=== PATIENT | male | born 1970 | race Caucasian/White ===

== ENCOUNTER → 2018-03-08 15:42 | Outpatient (CLI) | payer OTHER, SELFPAY | PROVIDERS: Family Provider Family Medicine; PCP Family Medicine | DX: Z23 Encounter for immunization (principal) | CPT/HCPCS: 90471; 90686 ==

== ENCOUNTER → 2018-06-27 08:53 | Outpatient (CLI) | payer OTHER, SELFPAY ==
[2018-06-27 09:50] LABS: Add Manual Diff / Slide Review NO; Basophils Absolute Auto 0 /uL (0-100); Basophils Percent Auto 0.8 % (0-2); Eosinophils Absolute Auto 100 /uL (0-450); Eosinophils Percent Auto 2.3 % (2-4); Hematocrit 50.3 % (41-53); Hemoglobin 17.2 g/dL (13.5-17.5); Lymphocytes Absolute Auto 1100 /uL (1100-4500); Lymphocytes Percent Auto 17.4 % (25-40); Mean Corpuscular HGB Conc 34.2 % (30-36); Mean Corpuscular Volume 90.7 fL (80-100); Monocytes Absolute Auto 600 /uL (0-900); Monocytes Percent Auto 9.2 % (3-14); Neutrophils Absolute Auto 4400 /uL (1500-7000); Neutrophils Percent Auto 70.3 % (50-75); Platelet Count 232 X10^3/uL (150-400); Red Blood Cell Count 5.55 X10^6/uL (4.5-5.9); Red Cell Distribution Width 14.1 % (11.6-14.8); White Blood Cell Count 6.3 X10^3/uL (4.5-11.0)
[2018-06-27 10:00] LABS: Alanine Aminotransferase 46 IU/L (21-72); Albumin 5.1 g/dL (3.5-5.0); Albumin Globulin Ratio 1.6 (1.0-2.8); Alkaline Phosphatase 66 U/L (38-126); Aspartate Aminotransferase 40 IU/L (17-59); BUN Creatinine Ratio 16.7 (6-22); Bilirubin Total 0.8 mg/dL (0.2-1.3); Blood Urea Nitrogen 15 mg/dL (9-20); Calcium 9.9 mg/dL (8.4-10.2); Carbon Dioxide 26 mmol/L (22-32); Chloride 99 mmol/L (98-107); Cholesterol 221 mg/dL (140-199); Estimated Glomerular Filt Rate > 60.0 mL/min (>60); Globulin 3.2 g/dL (1.7-4.1); Glucose 98 mg/dL (70-100); HDL Cholesterol 46 mg/dL (40-60); HEMOLYSIS < 15 (0-50); LDL Cholesterol Calculated 108 mg/dL (<100); Potassium 3.6 mmol/L (3.4-5.1); Sodium 138 mmol/L (137-145); Total Protein 8.3 g/dL (6.3-8.2); Triglycerides 334 mg/dL (35-150)
[2018-06-27 10:29] LABS: Prostate Specific Antigen Scrn 0.898 ng/mL (0.1-4.0)
[2018-06-27 10:32] LABS: Vitamin D 25 Hydroxy (D3) 60.1 ng/mL (30.0-100.0)
[2018-06-27 10:44] LABS: Thyroid Stimulating Hormone 1.58 uIU/mL (0.47-4.68)
== END ==
PROVIDERS: PCP Family Medicine; Visit Provider Family Medicine
DX: E78.5 Hyperlipidemia, unspecified (principal); E55.9 Vitamin D deficiency, unspecified; I10 Essential (primary) hypertension; Z00.00 Encounter for general adult medical examination without abnormal findings
CPT/HCPCS: 36415; 80053; 80061; 82306; 84443; 85025; G0103

== ENCOUNTER → 2018-08-07 15:20 | Outpatient (REF) | payer OTHER, SELFPAY ==
[2018-08-07 15:50] LABS: Influenza A and B by PCR Rapid Negative (Negative)
== END ==
LOC: LAB 15:20
PROVIDERS: PCP Family Medicine; Visit Provider Internal Medicine
DX: R50.9 Fever, unspecified (principal); R05 Cough
CPT/HCPCS: 87400

== ENCOUNTER 2018-09-28 06:05 | Inpatient (IN) | payer OTHER, SELFPAY ==
[2018-09-18 13:54] VITALS: BMI 25.7
[2018-09-28] VITALS (21 sets, daily range): BP systolic 113–148; BP diastolic 65–109; PULSE 89–115; RESP 3–18; TEMP 35.6–36.6; O2SAT 91–96; BMI 25.2
--- NOTE | 2018-09-28 | DI.RAD.S_ITS ---
PROCEDURE: XR LUMBAR SPINE 2-3V INDICATIONS: L5-S1 TLIF TECHNIQUE: 2 views of the lumbar spine were acquired. COMPARISON: [facility], , L-SPINE 2-3 VIEWS, 08/20/2016, 15:33. FINDINGS: Bones: The digital imaging demonstrates normal alignment established after placement of transverse pedicle screws and vertical fixation rods crossing L5-S1 with an interbody disc cage prosthesis centrally positioned. Soft tissues: Overlying bowel gas pattern is normal. No suspicious soft tissue calcifications. IMPRESSION: Normal alignment established after L5-S1 fusion with interbody disc prosthesis placement also. Dictated by: Adrian Hair M.D. on 09/28/2018 at 12:07 Approved by: Adrian Hair M.D. on 09/28/2018 at 12:09
[2018-09-28] MEDS: LACTATED RINGERS 1,000 ML 42 ML IV ×2 (07:43→11:10)
[2018-09-28] MEDS: CEFAZOLIN 2 GM/100 ML FROZ.PIGGY IV ×3 (07:50→23:50)
--- NOTE | 2018-09-28 08:18 | SUR.OPER ---
Prone on spine table, head in foam head support, padded chest and pelvic supports, gel pad at knees, lower legs supported by pillows; nipples, genitalia and toes free of pressure, arms secured on foam padded arm boards at <90 degrees abduction. Tape over blanket at calves secured to table.
[2018-09-28] MEDS: BUPIVACAINE 0.25% W/ EPI 30 ML VIAL INJ (08:32)
[2018-09-28] MEDS: BUPIVACAINE LIPOSOME 266 MG/20 ML VIAL INJ (08:35)
--- NOTE | 2018-09-28 10:33 | P.OP_ITS ---
Operative Date/Time/Diagnoses Date of procedure: 09/28/18 Time of procedure: 08:09 Pre-op diagnosis: 1. L5-S1 post laminectomy syndrome 2. L4-5, L5-S1 spinal stenosis Post-op diagnosis: same Procedure & Clinicians Procedure: 1. L5-S1 Postero-lateral and posterior interbody fusion 2. L5-S1 interbody cage placement. 3. L5-S1 decompressive laminectomy with bilateral facetecomies 4. L5-S1 Posterior non-segmental instrumentation 5. L4-5 right hemilaminectomy 6. [place] of bone marrow from iliac crest 7. Utilization of microsurgical technique and operating microscope Same procedure as scheduled: Yes Indications: Patient has been having chronic back pain and worsening lumbar radiculopathy. Patient failed multiple conservative management with worsening pain weakness and numbness in her lower extremity. Patient has been having difficulty performing activity of daily living. After discussing risks benefits of treatment options, patient elected proceed with surgery. Surgeon: Jose Raul Kang Promotional Marketing Agent: Lou Gibbs Click Yes if Unassisted: No Anesthesia Type: General Operative Notes Closure Type: primary Specimen(s): none sent Prosthetic devices, grafts, tissues, transplants, or devices: Globus Creo MIS pedicle screws, Rise cage Estimated Blood Loss (mL): 50 Blood products transfused: none Procedure in detail: Patient was seen in the preoperative area. Risks and benefits of the surgery was discussed with the patient. Informed consent was obtained from the patient and placed in the chart. Surgical site was marked. Patient was taken to the operative room. General anesthesia was administered. Prophylactic antibiotic was given to the patient less than 30 min before the incision was made. Patient was placed into a prone position on the Joshua table. Patient's back was then prepped and draped in the sterile fashion. Time- out was performed at this time. Using AP and lateral C-arm imaging the interval between L4-5, L5-S1 was identified and marked on patient's back. A 2 inch incision 2 in from midline was made on the right side first. The fascia was incised in line with skin incision. Globus MARS retractors was placed inside the incision and docked onto the L5 lamina. Using microsurgical technique and operating microscope, a L5 laminectomy and L5-S1 facetectomy was performed using a Kerrison rongeur. Patient was found have severe bilateral neural foramen stenosis which was fully decompressed when bilateral facetectomy was performed. More than 75% of bilateral facets were resected rendered L5-S1 grossly unstable requiring a fusion procedure. The disc space at L5-S1 was identified. And a total dis kectomy was performed at L5-S1 level. The endplates were decorticated using a rasp and shaver. The total diskectomy and decortication was performed at L5-S1 level in order to to accomplish a L5-S1 fusion. The local bone from the laminectomy and facetectomy was saved for local bone grafting. After the total diskectomy and decortication was completed, Bio4 bone graft material was combined with local bone that was harvested earlier. At this time, a separate skin is incision was made over the iliac crest. A Jamshidi needle was inserted into the iliac crest through a separate skin incision. 5 cc of bone marrow aspiration was obtained through the separate skin incision using a Jamshidi needle from the iliac crest. The bone marrow aspiration was combined with local bone and the Bio4 bone grafting material. The bone grafting material was placed into the L5-S1 interbody space along with a expandable cage. The cage was expanded to its maximum height using the torque limiting screwdriver. At this time the MARS retractor was redirected over the L4 lamina. Using microsurgical technique and operating microscope, a L4 heminectomy was performed using the Kerrison rongeur. The ligamentum flavum was also resected at the side of the hemilaminectomy for further decompression of the epidural space. At this time a mirror image incision was made on the left side. The fascia was incised in line with the skin incision. Globus MARS retractor was inserted and docked onto the L5-S1 posterolateral gutter. Using the power drill, posterior- lateral decortication was performed at L5-S1 level until bleeding cortical bone was identified. The remaining bone grafting material was placed into the L5-S1 posterior lateral gutter he order to accomplish posterolateral fusion at the L5- S1 level. Using the double C-arm technique, pedicle screws were placed into the L5 and S1 pedicles bilaterally. This was done by placing the Jamshidi needle into the pedicles, then placing the guidewires over the Jamshidi needle, and finally placing the cannulated screws over the guidewires bilaterally. After the pedicle screws were placed, 2 titanium rods was locked into the heads of the pedicle screws using locking caps and torque limiting screwdriver. After all the hardware was placed, and confirmed with AP and lateral C-arm imaging, the wound was then irrigated with sterile normal saline and packed with Ray-Jovanni gauze for 3 min to accomplish hemostasis. After the gauze was removed the deep fascia was closed with #1 Vicryl suture. The subcutaneous layer was closed with 2-0 Vicryl. The skin was closed with skin layne. Patient tolerated the procedure well. There were no complications. Complications: none Condition: stable Disposition: Acute Care Plan for aftercare: Admit to inpatient hospital
[2018-09-28] MEDS: hydrOXYzine 50 MG/ML INJ 25 MG IM (10:41)
[2018-09-28] MEDS: HYDROMORPHONE 2 MG INJ 1 MG IV (10:44)
--- NOTE | 2018-09-28 10:44 | PM.PREOP ---
Pre-operative Note Interval Note History & Physical reviewed/Exam performed by Physician: Yes Changes to H&P: No
[2018-09-28] MEDS: OXYCODONE IR 5 MG TABLET PO ×2 (11:14→11:48)
[2018-09-28] MEDS: SODIUM CHLORIDE 0.9% 1,000 ML 100 ML IV ×2 (12:44→23:46)
[2018-09-28] MEDS: HYDROMORPHONE 1 MG INJ 0.5 MG IV ×2 (12:45→15:31)
--- NOTE | 2018-09-28 13:28 | PC.NURSE ---
admission done. pt states very uncomfortable restless. H/O sleep apnea but doesn't use Cpap. O2 at 2L/NC. desats to 88% occasionally with sleeping. Dilaudid 0.5mg IV given.
[2018-09-28] MEDS: LISINOPRIL 20 MG TABLET PO (14:39)
[2018-09-28] MEDS: AMLODIPINE 5 MG TABLET PO (14:40)
[2018-09-28] MEDS: OXYCODONE/ACETAMINOPHEN 5/325 TABLET 2 TAB PO ×3 (14:42→23:23)
[2018-09-28] MEDS: HYDROMORPHONE 2 MG INJ 0.5 MG IV (14:56)
--- NOTE | 2018-09-28 15:21 | PT.IIE ---
Current Diagnoses Other spondylosis with radiculopathy, lumbar region (09/28/18) Spinal stenosis, lumbar region without neurogenic claudication (09/28/18) Other specified postprocedural states (09/28/18) Surgery Performed Operation Date: 09/28/18 07:45 Actual Procedures p L4-5 Hemilaminectomy, L5-S1 TLIF w/Posterior Instru. - Jose Raul Kang MD Surgical History (Last Updated 09/18/18 @ 14:12 by Emmy Caban RN) History of kidney surgery (Acute) Hx of microdiscectomy (Acute 08/20/16) Hx of sinus surgery (Acute) S/P cervical spinal fusion (Acute ~2011) Medical History (Last Updated 09/18/18 @ 14:12 by Emmy Caban RN) Anxiety (Acute) Depression (Acute) HLD (hyperlipidemia) (Acute) HTN (hypertension) (Acute) Kidney stones (Acute) Low back pain (Acute) Sleep apnea (Acute) Physical Therapy Inpatient Evaluation/Re-Eval M1 PT/OT-IP Prior Functional Status Start: 09/28/18 16:27 Freq: NEEDED Status: Active Protocol: Document 09/28/18 15:21 AB (Rec: 09/28/18 16:49 AB [id number]) Medical Review Prior Functional Status Medical History Reviewed Yes Communication able to make needs known Mobility and Gait stated that he is independent with all mobilities and ambulation wtihout AD Social History Household Members spouse children Living Arrangements House Number of Floors (Floors) Two Floors Number of Stairs To Enter/Railing? 1 platform step to getinto the garage 2 steps from the garage to enter the house without rails 12 steps with R rail ascending to 2nd floor bedroom Home Environment Standard Height Toilet Tub/Shower Home Equipment Front Wheel Walker Employment Status [employer] Employed Additional Social History Comment pt works as a [employer] M2 PT-IP Current Condition Start: 09/28/18 16:27 Freq: NEEDED Status: Active Protocol: Document 09/28/18 15:21 AB (Rec: 09/28/18 16:49 AB [id number]) Physical Therapy Current Condition Current Condition Evaluation Date 09/28/18 Treatment Diagnosis s/p L5S1 fusion;lami; difficulty in walking Onset Date 09/18/18 Precautions Lumbar Precautions Log Roll No Twisting Limit Bending Lifting Restriction of 10 lbs Gait Belt above Incisional Area M3 PT-IP Subjective Start: 09/28/18 16:27 Freq: NEEDED Status: Active Protocol: Document 09/28/18 15:21 AB (Rec: 09/28/18 16:49 AB [id number]) Subjective Physical Therapy Visit Type Type Initial Evaluation Visit Start Time 15:21 Visit Stop Time 16:00 Total Visit Minutes 39 Number of MANIFEST CLERK Visits 0 Physical Therapy Visit Comments Patient Comments pt agreeable to do PT Therapy Pain Assessment Pain When Pain Assessed At Rest Pain Present Pain Present Pain Reported Location Lower Back Intensity 9 Scale Used Numeric (1 - 10) Pain Management Techniques Apply Cold Re-positioning Timing of Activity with Medications M4 PT-IP Mobility and Gait Start: 09/28/18 16:27 Freq: NEEDED Status: Active Protocol: Document 09/28/18 15:21 AB (Rec: 09/28/18 16:49 AB [id number]) PT-Bed Mobility Assessment Rolling Type of Rolling Log Rolling Level of Assist Standby Assistance Supine to Sit Supine to Sit Standby Assistance PT-Transfer Assessment Sit to and From Stand Sit to and from Stand Minimal Assistance 1 Person Assistance Use of Upper Extremities Equipment Transfer Assistive Device Gait Belt Front Wheeled Walker Orthotic/Prosthetic Devices or Brace: No Transfers Transfer Destination Chair Transfer Technique pt ambulated using FWW Transfer Ability Level of Assist Contact Guard Assistance Minimal Assistance Gait Assessment Gait Gait Assistance Required: Contact Guard Assist Minimum Assistance Distance (Feet) 10 Able to Maintain Weight Bearing Status Yes During Gait Assistive Devices Assistive Device Gait Belt Front Wheeled Walker Orthotic/Prosthetic Devices or Brace: No Gait Deviations General Gait Pattern Antalgic Factors Limiting Gait Function Factors Limiting Gait Function Decreased Activity Tolerance Decreased Strength Limited Range of Motion Pain Poor Balance Poor Safety Awareness PT-Balance Assessment Sitting Balance and Reactions Static Sitting Balance Ability Good Dynamic Sitting Balance Ability Good Standing Balance and Reactions Static Standing Balance Ability Fair Dynamic Standing Balance Ability Fair Device Used FWW M5 PT-IP Objective Assessments Start: 09/28/18 16:27 Freq: NEEDED Status: Active Protocol: Document 09/28/18 15:21 AB (Rec: 09/28/18 16:49 AB [id number]) Orientation Orientation/Cognition Level of Alertness Alert Orientation Name Place Situation Safety Awareness Decreased Safety Awareness Gross Range of Motion Lower Extremity ROM Assessment Within Functional Limits Strength Lower Extremity Strength Assessment Left Impaired Knee 3+/5 Sensation Assessment Sensation Gross Sensation WNL Muscle Tone Muscle Tone WNL Yes M6 PT-IP Treatment Start: 09/28/18 16:27 Freq: NEEDED Status: Active Protocol: Document 09/28/18 15:21 AB (Rec: 09/28/18 16:49 AB [id number]) Physical Therapy Treatment Education Education Provided Precautions Weight Bearing Status Post-Op Packet Safety M7 PT-IP Assessment and Plan Start: 09/28/18 16:27 Freq: NEEDED Status: Active Protocol: Document 09/28/18 15:21 AB (Rec: 09/28/18 16:49 AB [id number]) PT Summary Assessment and Plan Potential Rehabilitation Potential Good Status of Condition at Evaluation Stable Summary Impairments Pain ROM Strength Balance Coordination Sensation Tone Cognition Bed Mobility Transfers Gait Activity Tolerance Assessment Summary pt requiring CGA to min A with mobility and will likely improve during hospital stay. pt plans to go home and spouse/children will be able to assist pt but will not be there 29/11. Goals Bed Mobility Goal Independent Transfer Goal Independent Front Wheeled Walker Gait Goal Independent Front Wheel Walker Gait Distance 200 Other Goals up/down platform step using FWW SBA up/down 2 steps without rails SBA up/down 12 steps R rail ascending SBA Days to Meet Goals 5 Frequency of Treatment Frequency Of Treatment Twice a Day Treatment Plan Physical Therapy Treatment Plan Bed Mobility Training Transfer Training Gait Training Therapeutic Exercise Balance Retraining Post Op Education Discharge Planning Hot or Cold Pack Neuromuscular Re-ed Coordination Retraining Manual Therapy Other Recommendations and Next Treatment ambulation, stair climbing Focus training, caregiver training when appropriate Recommendations To Nursing Amount of Assist Needed 1 Person Assist Discharge Recommendations PT Discharge Recommendations Home with Assistance
[2018-09-28] MEDS: hydrOXYzine pamoate 25 MG CAPSULE PO ×2 (15:31→22:01)
--- NOTE | 2018-09-28 15:41 | CM.DANOTE ---
Discharge Planning/Care Management DCP: assessment: case received this morning, EMR reviewed and noted that pt was still in surgery. Available documentation reveals that pt is a 47 year old male who admitted early this morning for a planned spinal surgery. Surgeon: Dr. Kang. Payer: [employer] [facility] PCP: Dr. Ranjan Boyd Pt is employed by [employer]. A check in now shows that pt did arrive to room 204 mid afternoon from PACU. PT and OT are ordered but likely will see him for the first time tomorrow. P: discuss case in Team Rounds tomorrow, confer with OT and PT and then meet with pt to continue the DCP assessment process. Pt identified his d/c plan during the pre-op process as home. CM Discharge Assessment Start: 09/28/18 15:40 Freq: Status: Active Protocol: Document 09/28/18 15:40 ITV (Rec: 09/28/18 15:41 ITV [id number]) Discharge Planning Assessment Advance Directives? No: Declines further information Advance Directives on File No History Provided By Medical Record Prior Living Arrangements House Household Members spouse children Review Status In Process Pre-Anesthesia Assessment Start: 09/18/18 13:54 Freq: Status: Active Protocol: Document 09/18/18 13:54 CAB (Rec: 09/18/18 14:20 CAB [id number]) Pre-Anesthesia Assessment PAC Comment C02 35 on pre-op labs 08/28/18 Patient Information Reviewed Via Phone Assessment Assessment Completed With Patient Diagnostic Results BMP/CMP CBC EKG Comment Outside labs/EKG scanned to record Primary Care Provider Walt Boyd Medical Clearance Received Yes Seen Specialist in Last 12 Months Yes Specialist Seen Orthopedist Comment PCP pre-op 08/23/18 w/clearance 08/28/18 scanned to record Primary Language Thai Rib Matcher And Fitter Required No Height 180.34 cm Weight 83.915 kg Body Mass Index (BMI) 25.7 Hearing Ability Normal Visual Impairment No Limitations Visual Assist None Dentition Type Teeth, Natural Present Teeth, Missing Barriers to Learning None Hx Anesthesia Reactions No: C02 35 on pre-op labs 08/28 Hx Family Anesthesia Reaction No Hx Malignant Hyperthermia No Hx Blood Transfusions No Anesthesia Review Requested No Mold Engraver No alcohol intake current alcohol intake frequency a few times a week Smoking Status Former smoker Tobacco type cigarettes how long ago did patient quit smoking Quit 15 years ago, chews nicorette gum Substance Use Type does not use Pain Present Pain Reported Musculoskeletal Symptoms Back Pain Difficulty Walking Joint Pain Neck Pain History of Falling (Recent or History of No ) Patient is completely paralyzed or No completely immobile Mental Status Oriented to own ability Is patient on oxygen? No Does patient have MALONE/SOB No Hx Sleep Apnea Yes: told on the cusp does not use CPAP Currently Taking a Beta Shauna No Can You Climb a Flight of Stairs Without Yes SOB Hx Chest Pain No Hx SOB No Hx Syncope or Dizziness No Anti-Coagulant Therapy No Has a Machine Shop Inspector No Cardiac Testing No Hx Pacemaker/ICD No Pacemaker Rep Required? No Cardiac Clearance Received Not Applicable Diet Type At Home Regular dysphagia No Urinary Catheter Present No Hx Urinary Self Catheterization No Diabetes No Hx Drug Resistant Organism No Presence of External or Internal Medical Yes: Clip on the left kidney Devices artery Have you traveled outside the [facility] in the last 30 days? Marital Status Lives With spouse children Prior Living Arrangements House Number of Floors (Floors) Two Floors Support System Spouse Does the Patient Have Assistance After Yes Surgery Patient Discharge Plan Description Return Home Comment Pt not advised on length of stay per surgeon's office Feels Safe in Current Environment Yes Been Physically Hurt or Threatened By a No Person in Current Environment Do you have thoughts of harming yourself None or others? Are you currently considering suicide? No Do you have a plan to hurt yourself or No Plan others? Do You Have Any Spiritual Beliefs That No May Affect Your HC Choices? Do You Have Any Cultural Practices That No May Affect Your HC Choices? Who Can We Speak to About Patient's Care Family, friends Identifying Code for Release of Patient Declines to issue Information Health Care Proxy/Next of Kin Marta () Health Care Proxy Emergency Contact Name Marta () Emergency Contact Advance Directives? No: Declines further information PAC Instructions Durable medical equipment Medications to take/avoid Nasal antibiotic No ETOH/petroleum product on skin DOS NPO Pre-surgical wash Sturdy shoes/comfortable clothes Do not bring valuables and remove jewelry
[2018-09-28] MEDS: HYDROMORPHONE 0.5 MG INJ IV (18:10)
[2018-09-28] MEDS: LOVASTATIN 20 MG TABLET 60 MG PO (22:01)
[2018-09-28] MEDS: SENNOSIDES 8.6 MG TABLET 17.2 MG PO (22:02)
[2018-09-28] MEDS: DOCUSATE 100 MG CAPSULE PO (22:02)
[2018-09-29] MEDS: HYDROMORPHONE 0.5 MG INJ IV (02:39)
[2018-09-29] MEDS: hydrOXYzine pamoate 25 MG CAPSULE PO (02:39)
[2018-09-29] MEDS: OXYCODONE/ACETAMINOPHEN 5/325 TABLET 2 TAB PO ×2 (05:58→10:52)
[2018-09-29 05:59] VITALS: BP 106/78; PULSE 93; RESP 16; TEMP 36.5; O2SAT 95
[2018-09-29 06:42] LABS: Hemoglobin 14.1 g/dL (13.5-17.5)
[2018-09-29] MEDS: DEXAMETHASONE 10 MG/ML VIAL IV (08:47)
[2018-09-29] MEDS: GABAPENTIN 300 MG CAPSULE PO ×2 (08:48→10:50)
[2018-09-29] MEDS: AMLODIPINE 5 MG TABLET PO (08:48)
[2018-09-29] MEDS: CHOLECALCIFEROL (VITAMIN D3) 5,000 UNIT TABLET 5000 UNIT PO (08:49)
[2018-09-29] MEDS: SERTRALINE 50 MG TABLET 150 MG PO (08:49)
[2018-09-29] MEDS: LISINOPRIL 20 MG TABLET PO (08:49)
[2018-09-29] MEDS: DOCUSATE 100 MG CAPSULE PO (08:49)
[2018-09-29] MEDS: hydroCHLOROthiazide 25 MG TABLET PO (08:49)
[2018-09-29] MEDS: DULOXETINE 30 MG CAPSULE PO (08:49)
--- NOTE | 2018-09-29 09:54 | PM.PNPO.1 ---
Subjective Date Patient Seen: 09/29/18 Time Patient Seen: 09:54 Interval history: POD #[address] Kang. Patient had pain control issues last night. States it was sharp shooting pains down his leg. Patient was not on pain meds prior to surgery. He has taking gabapentin in the past and did well on it. He has not been up PT. Exam Vital Signs (past 8 hours): - 09/29/18 05:59 Temperature 97.7 F Pulse Rate 93 H Respiratory Rate 16 Blood Pressure 106/78 Pulse Oximetry 95 Fraction of Inspired Oxygen 28 Oxygen Delivery Method Nasal Cannula Oxygen Flow Rate 2 Narrative Exam Narrative: Patient walking about room in pain. Dressing on back has shadow drainage on right side. Dressing removed there is no active drainage, hematoma, or erythema. Pulses are symmetrical. Calves are soft, compressible, nontender bilaterally. Objective Labs Result Diagrams: 09/29/18 05:45 Labs: Laboratory Results - last 24 hr 09/29/18 05:45 Hgb 14.1 Hct 42.0 Assessment & Plan Post-op (1) S/P lumbar fusion: (2) Lumbar radiculopathy: Postoperative Procedures Operation Date: 09/28/18 07:45 Actual Procedures Side Surgeon p L4-5 Hemilaminectomy, L5-S1 TLIF w/Posterior Instru. Jose Raul aKng MD patient will mobilize with physical therapy today. No excessive bending, lifting, or twisting. Dressing changed cover site dressing. Started patient on gabapentin 300 mg t.i.d.. Started on Decadron 10 mg now, 4 mg every 6 hours. Continue current pain control. Patient may discharge home tonight if he is ambulating safely with adequate pain control. If not he may discharge home tomorrow. Quality VTE Deep Vein Thrombosis/Pulmonary Embolism Present on Admission: No
[2018-09-29 10:00] VITALS: BP 119/79; PULSE 97; RESP 18; TEMP 37.2; O2SAT 91
--- NOTE | 2018-09-29 10:37 | OT.IP.TRT ---
Current Diagnoses Other spondylosis with radiculopathy, lumbar region (09/28/18) Spinal stenosis, lumbar region without neurogenic claudication (09/28/18) Radiculopathy, lumbar region (09/28/18) Arthrodesis status (09/28/18) Other specified postprocedural states (09/28/18) Surgery Performed Operation Date: 09/28/18 07:45 Actual Procedures p L4-5 Hemilaminectomy, L5-S1 TLIF w/Posterior Instru. - Jose Raul Kang MD Occupational Therapy Treatment Note M2 OT-IP Current Condition Start: 09/29/18 10:12 Freq: Status: Active Protocol: Document 09/29/18 10:13 [facility] (Rec: 09/29/18 10:37 [facility] [email or web address]) Occupational Therapy Current Condition Current Condition Evaluation Date 09/29/18 Treatment Diagnosis Lumbar stenosis Diagnosis Onset Date 09/28/18 Post Operative Precautions Abdominal Surgery Precautions Log Roll Lifting Restrictions Gait Belt above Incisional Area Weight Bearing Status Weight Bearing Status Weight Bear as Tolerated M3 OT- IP Subjective and Pain Start: 09/29/18 10:12 Freq: Status: Active Protocol: Document 09/29/18 10:13 [facility] (Rec: 09/29/18 10:37 [facility] [email or web address]) OT- Subjective Occupational Therapy Visit Type Type Initial Evaluation Visit Start Time 09:05 Visit Stop Time 10:05 Total Visit Minutes 60 Occupational Therapy Visit Comments Patient Comments Pt agreeable to shower. OT Pain Assessment Pain When Pain Assessed At Rest Pain Present Pain Present Denied Pain M4 OT- IP ADL's Start: 09/29/18 10:12 Freq: Status: Active Protocol: Document 09/29/18 10:13 [facility] (Rec: 09/29/18 10:37 [facility] [email or web address]) OT ADL-Dressing General Eval Lower Body Dressing Ability Maximum Assistance Comments OT Dressing Comments MAX A x for LB dressing, able to educate for pt for use of dieing out machine operator, sock aid, and long handled shoe horn. Pt able to show good understanding and safety. OT ADL-Bathing Bathing Type Bathing Type Shower General Evaluation Bathing Ability Minimal Assistance Areas Needing Assistance Wash/Dry Back Devices Bathing Equipment Hand Held Shower Sprayer Shower Chair with Arms Grab Bars Comments OT Bathing Comments Pt needing assist to wash/dry his back and hair. Suggested pt to get either shower chiar if able to step into the tub/ shower. If not tub bench and glass door will need to taken off . In addition beneficial to have HHSP. Recommended to stand with FWW to toilet. M5 OT- IP IADL's Start: 09/29/18 10:12 Freq: Status: Active Protocol: Document 09/29/18 10:13 [facility] (Rec: 09/29/18 10:37 [facility] [email or web address]) OT-Instrumental Activities of Daily Living Home Safety Awareness Awareness of Need for Assistance at Home Good Awareness Ability to Problem Solve Emergency Able to Problem Solve Situations Medication Management Medication Management No Deficits Identified Technology Architect Technology Architect Caregiver Provides Assist M6 OT- IP Functional Cognition Start: 09/29/18 10:12 Freq: Status: Active Protocol: Document 09/29/18 10:13 [facility] (Rec: 09/29/18 10:37 [facility] [email or web address]) Cognitive Factors Limiting Selfcare Function Cognitive Ability Level of Alertness Alert Patient Orientation Name Age Birthday Month Date Year Day of Week Place Situation Attention Span Ability Capable of Focused Attention Capable of Sustained Attention Ability to Follow Commands Able to Follow One Step Commands Memory Description No Deficits Noted Safety Awareness Decreased Ability to Apply Precautions Problem Solving Ability Needs Assist to Identify Solutions Cognitive Comments Cognitive Assessment Comments Pt needing vc for safety awareness , cues for safety to sit and stand, and vc to take his time. OT- Vision and Hearing OT- Hearing Assessment OT- Hearing Assessment WFL M7 OT- IP Mobility and Balance Start: 09/29/18 10:12 Freq: Status: Active Protocol: Document 09/29/18 10:13 [facility] (Rec: 09/29/18 10:37 [facility] [email or web address]) OT- Bed Mobility Assessment Rolling Type of Rolling Roll to Right Level of Assistance Standby Assistance Supine to Sit Supine to Sit Assist Standby Assistance Sit to Supine Sit to Supine Assist Standby Assistance OT-Transfer Assessment Sit to and From Stand Sit to and from Stand Standby Assistance Transfers Transfer Ability Standby Assistance Contact Guard Assistance 1 Person Assistance Technique Transfer Destination Bed Shower Stall Devices Transfer Assistive Devices Gait Belt Front Wheeled Walker Comments Mobility Comments CGA for balance with FWW to step over the threshold of the shower , otherwise SBA. Pt needing cues for bed mobility, with practice able to do. Pt needs cues to proper technique to stand, pt tends to heavily rely on his arms. OT- Balance Assessment Sitting Balance and Reactions Static Sitting Balance Ability Normal Dynamic Sitting Balance Ability Normal Standing Balance and Reactions Static Standing Balance Ability Good Dynamic Standing Balance Ability Fair M8 OT- IP Objective Assessments Start: 09/29/18 10:12 Freq: Status: Active Protocol: Document 09/29/18 10:13 [facility] (Rec: 09/29/18 10:37 [facility] [email or web address]) OT Gross Range of Motion Upper Extremity Range of Motion Assessment Within Functional Limits OT Strength Comments Strength Comments WFL for Adl needs. M9 OT- IP Assessment and Plan Start: 09/29/18 10:12 Freq: Status: Active Protocol: Document 09/29/18 10:13 [facility] (Rec: 09/29/18 10:37 [facility] [email or web address]) OT Summary Assessment and Plan Potential Rehabilitation Potential Good Analytic Complexity at Evaluation Low Summary OT Impairments Pain Functional Mobility Dressing Bathing Shower Transfers Progress Towards Goals Progressing Toward Goals Assessment Summary Pt low complexity and main barrier are steps and now with use of LB AED able to manage dressing needs. Pt's family to assist pt at home. Goals Toileting Goal Independent Toilet Transfer Goal Independent Patient/Caregiver Education Goal Caregiver Independent Assisting Patient Days to Meet Goals 1 Frequency of Treatment Frequency Of Treatment Once a Day Treatment Plan OT Treatment Plan Patient/Family Education Discharge Planning Discharge Recommendations OT Discharge Recommendations Home with Assistance
[2018-09-29 11:23] VITALS: O2SAT 94
--- NOTE | 2018-09-29 11:35 | PT.IPTN ---
Current Diagnoses Other spondylosis with radiculopathy, lumbar region (09/28/18) Spinal stenosis, lumbar region without neurogenic claudication (09/28/18) Radiculopathy, lumbar region (09/28/18) Arthrodesis status (09/28/18) Other specified postprocedural states (09/28/18) Surgery Performed Operation Date: 09/28/18 07:45 Actual Procedures p L4-5 Hemilaminectomy, L5-S1 TLIF w/Posterior Instru. - Jose Raul Kang MD Physical Therapy Treatment Note M2 PT-IP Current Condition Start: 09/28/18 16:27 Freq: NEEDED Status: Active Protocol: Document 09/28/18 15:21 [facility] (Rec: 09/28/18 16:49 [facility] [id number]) Physical Therapy Current Condition Current Condition Evaluation Date 09/28/18 Treatment Diagnosis s/p L5S1 fusion;lami; difficulty in walking Onset Date 09/18/18 Precautions Lumbar Precautions Log Roll No Twisting Limit Bending Lifting Restriction of 10 lbs Gait Belt above Incisional Area M3 PT-IP Subjective Start: 09/28/18 16:27 Freq: NEEDED Status: Active Protocol: Document 09/29/18 11:35 [facility] (Rec: 09/29/18 12:10 [facility] [email or web address]) Subjective Physical Therapy Visit Type Type Treatment Note Visit Start Time 11:10 Visit Stop Time 11:35 Total Visit Minutes 25 Number of FUR CLIPPER Visits 1 Physical Therapy Visit Comments Patient Comments Pt willing to work with therapy. Therapy Pain Assessment Pain When Pain Assessed At Rest Pain Present Pain Present Pain Reported M4 PT-IP Mobility and Gait Start: 09/28/18 16:27 Freq: NEEDED Status: Active Protocol: Document 09/29/18 11:35 [facility] (Rec: 09/29/18 12:10 [facility] [email or web address]) PT-Bed Mobility Assessment Rolling Type of Rolling Log Rolling Level of Assist Standby Assistance Supine to Sit Supine to Sit Standby Assistance PT-Transfer Assessment Sit to and From Stand Sit to and from Stand Standby Assistance Use of Upper Extremities Equipment Transfer Assistive Device Gait Belt Front Wheeled Walker Orthotic/Prosthetic Devices or Brace: No Transfers Transfer Destination Chair Transfer Ability Level of Assist Contact Guard Assistance Gait Assessment Gait Gait Assistance Required: Contact Guard Assist Distance (Feet) 450 Able to Maintain Weight Bearing Status Yes During Gait Assistive Devices Assistive Device Gait Belt Front Wheeled Walker Orthotic/Prosthetic Devices or Brace: No Gait Deviations General Gait Pattern Antalgic Factors Limiting Gait Function Factors Limiting Gait Function Decreased Activity Tolerance Decreased Strength Limited Range of Motion Pain Poor Balance Poor Safety Awareness Stair Climbing Assessment Evaluation Level of Assist On Stairs Contact Guard Assistance Devices Stair Climbing Assistive Devices None Front Wheel Walker Right Railing Technique/Endurance Stair Climbing Direction Ascend and Descend Stair Climbing Technique Step Over Step Step to Step Number of Steps Climbed 3 Query Text: Stair Climbing Set # Repetitions (reps) 3 Comments Stair Climbing Comments Pt ambulated one step with step to gait pattern with CGA and min Cues. 3 steps ascend with SBA with right rail with step to gait pattern, descend with step over step with left rail x 2. 3 steps witout no assistive device with CGA and step to gait pattern M5 PT-IP Objective Assessments Start: 09/28/18 16:27 Freq: NEEDED Status: Active Protocol: Document 09/28/18 15:21 [facility] (Rec: 09/28/18 16:49 [facility] [id number]) Orientation Orientation/Cognition Level of Alertness Alert Orientation Name Place Situation Safety Awareness Decreased Safety Awareness Gross Range of Motion Lower Extremity ROM Assessment Within Functional Limits Strength Lower Extremity Strength Assessment Left Impaired Knee 3+/5 Sensation Assessment Sensation Gross Sensation WNL Muscle Tone Muscle Tone WNL Yes M6 PT-IP Treatment Start: 09/28/18 16:27 Freq: NEEDED Status: Active Protocol: Document 09/29/18 11:35 [facility] (Rec: 09/29/18 12:10 [facility] [email or web address]) Physical Therapy Treatment Education Education Provided Precautions M7 PT-IP Assessment and Plan Start: 09/28/18 16:27 Freq: NEEDED Status: Active Protocol: Document 09/29/18 11:35 [facility] (Rec: 09/29/18 12:10 [facility] [email or web address]) PT Summary Assessment and Plan Summary Assessment Summary Pt improving with mobiltiy. He is safe and stable with gait and stairs. HE did need cues for stair mobility and hip hinge with sit <> stand. Pt safe for home D/C when medically stable. Frequency of Treatment Frequency Of Treatment Twice a Day Treatment Plan Physical Therapy Treatment Plan Bed Mobility Training Transfer Training Gait Training Therapeutic Exercise Balance Retraining Post Op Education Discharge Planning Hot or Cold Pack Neuromuscular Re-ed Coordination Retraining Manual Therapy Recommendations To Nursing Amount of Assist Needed 1 Person Assist Discharge Recommendations PT Discharge Recommendations Home with Assistance
--- NOTE | 2018-09-29 12:38 | PC.NURSE ---
Addendum entered by Angela Denton R.N. 09/29/18 13:02: Patient received new rx with instructions regarding frequency and side effects, s/sx of infection, showering and f/u care; pt d/c via wheelchair with spouse escorting Original Note: c/m/s to blles positive; Pain reassessed 09/15, tolerable for patient; LS clear, O2 RA=95%; island barrier drsg changed and c/d/i; steady gait, showered, and sitting up to chair for lunch
--- NOTE | 2018-09-29 12:47 | CM.DPC ---
DCP: continued: met as planned with pt and his after EMR review. Introduced self and role. Pt was found up, dressed and walking about room. Says his pain level is ok and that he has worked with therapy today and is ready to go [facility]. OT and PT notes both confirm pt is cleared for d/c from therapy standpoint. Ortho PA did give d/c order today if pt is cleared by PT and is pain is managed, otherwise said pt would d/c in morning. Updated RN Angela who is finalizing the d/c paper now.
== END 2018-09-29 13:00 | disposition home or self-care (01) | DRG 455 ==
PROVIDERS: Admitting Provider Orthopaedic Surgery Orthopaedic Surgery of the Spine; PCP Family Medicine; Visit Provider Orthopaedic Surgery Orthopaedic Surgery of the Spine
PROC: 0SG30AJ Fusion of Lumbosacral Joint with Interbody Fusion Device, Posterior Approach, Anterior Column, Open Approach (ICD-10-PCS; principal; 2018-09-28 07:45)
DX: M51.27 Other intervertebral disc displacement, lumbosacral region (principal); M48.061 Spinal stenosis, lumbar region without neurogenic claudication; M96.1 Postlaminectomy syndrome, not elsewhere classified; I10 Essential (primary) hypertension; E78.5 Hyperlipidemia, unspecified; M79.7 Fibromyalgia; F32.9 Major depressive disorder, single episode, unspecified; G47.33 Obstructive sleep apnea (adult) (pediatric); M48.07 Spinal stenosis, lumbosacral region; Z87.891 Personal history of nicotine dependence
CPT/HCPCS: 36415; 72100; 76000; 85014; 85018; 94760; 94762; 97116; 97161; 97165; 97530; 97535; C1776; C9290; J0330; J0690; J1100; J1170; J2250; J2405; J2704; J3010; J3410

== ENCOUNTER 2018-12-28 16:45 | Outpatient (RCR) | payer OTHER, SELFPAY ==
[2018-09-28 12:31] VITALS: BMI 25.2
--- NOTE | 2018-12-20 19:29 | PT.OIE ---
Current Diagnoses Low back pain (12/20/18) Arthrodesis status (12/20/18) Past Medical History (Last Updated 09/18/18 @ 14:12 by Emmy Caban RN) Anxiety (Acute) Depression (Acute) HLD (hyperlipidemia) (Acute) HTN (hypertension) (Acute) Kidney stones (Acute) Low back pain (Acute) Sleep apnea (Acute) Past Surgical History (Last Updated 09/18/18 @ 14:12 by Emmy Caban RN) History of kidney surgery (Acute) Hx of microdiscectomy (Acute 08/20/16) Hx of sinus surgery (Acute) S/P cervical spinal fusion (Acute ~2011) Provider Visit Care Team Role Provider Type Jose Raul Kang MD Attending Provider Physician Specialty: Orthopedic Surgery Address: [address] [place] [address], [id number] Email: [email or web address] Initial Evaluation PT-OP-A Visit Information Start: 12/20/18 18:54 Freq: Status: Active Protocol: Document 12/20/18 16:45 [facility] (Rec: 12/20/18 19:28 [facility] [email or web address]) Out-Patient Physical Therapy Visit Information Visit Information Visit Type Initial Evaluation Visit Start Time 16:45 Visit Stop Time 17:30 Total Visit Minutes 45 Visit Number 1/60 Number of CYCLE DIRECTOR Visits 0 Evaluation Information Evaluation Date 12/20/18 PT-OP-B Current Condition Start: 12/20/18 18:54 Freq: Status: Active Protocol: Document 12/20/18 16:45 [facility] (Rec: 12/20/18 19:28 [facility] [email or web address]) Current Condition History of Current Condition Onset Date many years ago Current Complaints Chronic LBP, difficulty in lifting and decreased activity tolerance History of Current Condition Pt presents to clinic with chronic LBP since many years ago. Pt had his first back surgery with L4-l5 Hemilaminectomy in 2017 and a recent L5-S1 TLIF on 09/28/18. Pt reports his back pain resolved for 2 months after 2nd surgery but it came back after he was lifting a box at work (he is restrictions free at this point) . He states his back pain has been getting worse since then R>L. He described his pain as achy at all times but sharp pain during twisting and lifting activities. He is unable to sit/ stand > 10 mins and moving around/ changing position tends to relieve pain temporarily. He is also unable to sleep recently due to his pain. He explained lying down usually feels good but unable to maintain one position for long period of time. Pt denies any radiating pain. 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 Prior Treatments and Tests L4-l5 Hemilaminectomy in 2017 and a recent L5-S1 TLIF on . Treatment Goals Patient/Caregiver Goals 1. To be pain free during bending, lifting and twisting motion 2. 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 Patient Questionnaires Oswestry Low Back Index Oswestry Score 27 Oswestry Impairment 20 to 39% Impaired (Score 20- 39) PT-OP-E Functional Tests Start: 12/20/18 18:54 Freq: Status: Active Protocol: Document 12/20/18 16:45 [facility] (Rec: 12/20/18 19:28 HH [email or web address]) Functional Tests Other single leg balance Name of Test SLS Comment B LE = 1 min PT-OP-K Range of Motion Start: 12/20/18 18:54 Freq: Status: Active Protocol: Document 12/20/18 16:45 [facility] (Rec: 12/20/18 19:28 HH [email or web address]) Lumbar Spine Range of Motion Lumbar Spine Active Degrees Testing Position Standing Flexion 25 Extension 5 Lateral Flexion Left 20 Lateral Flexion Right 20 ROM Limitations Pain Comments sig, limitation for lumbar extension with compensatory thoracic extension PT-OP-L Special Tests Start: 12/20/18 18:54 Freq: Status: Active Protocol: Document 12/20/18 16:45 [facility] (Rec: 12/20/18 19:28 [email or web address]) Special Tests Lumbar Spine Special Tests hip ext in prone Test Results +VE B Comments excessive lumbar /qL paraspinals activation noted supine leg lift Test Results +VE B Comments reduced pain with abdominal engagement Straight Leg Raise Test Results +VE B Prone Instability Test Test Results +ve Comments cues on gluteal engagement PT-OP-M Strength Start: 12/20/18 18:54 Freq: Status: Active Protocol: Document 12/20/18 16:45 [facility] (Rec: 12/20/18 19:28 [email or web address]) Hip Strength Hip Manual Muscle Testing Right Flexion (L2) 5 Normal Extension (S1) 4+ Good+ Abduction 4+ Good+ Adduction 5 Normal Left Flexion (L2) 5 Normal Extension (S1) 4+ Good+ Abduction 4+ Good+ Adduction 5 Normal PT-OP-T Assessment and Plan Start: 12/20/18 18:54 Freq: Status: Active Protocol: Document 12/20/18 16:45 [facility] (Rec: 12/20/18 19:28 [email or web address]) Physical Therapy Assessment Rehab Potential Rehabilitation Potential Good Evaluation Complexity Number of Personal Factors/Comorbidities 3 or More Number of Body Systems Impaired 1-2 Clinical Presentation at Evaluation Stable Impairments Impairments Activity Tolerance Functional Activities Functional Mobility Gait Pain Posture ROM Soft Tissue Mobility Strength Tone Transfers Goals strength Impairment Pt is unable to lift objects > 25 lbs due to pain Short Term Goal (STG) Pt will be able to lift objects > 25lbs from waist level without backpain to similate his work situation. STG Duration 5 weeks Hook Up Driver Goal (LTG) Pt will be able to lift objects > 25lbs from the floor without backpain to similate his work situation. LTG Duration 10 weeks activity tolerance Impairment pt is unable to júnior sit/ stand >10 mins Short Term Goal (STG) Pt will be able to sit/ stand > 10 mins with minimal of back pain in order to optimize his work performance STG Duration 5 weeks Prison Goal (LTG) Pt will be able to sit/ stand > 20 mins with minimal of back pain in order to optimize his work performance LTG Duration 10 weeks Oswestry LBP Impairment pt scores 27 (20-39% impairments) on Oswestry LBP questionnaire Prison Goal (LTG) pt will score <20 (1-19% impairments) on Oswestry LBP questionnaire to improve his overall functional mobility and quality of life. LTG Duration 10 weeks Assessment Summary Assessment Pt is a low complexity with primary c/o of chronic LBP who received recent L5-S1 TLIF in September. Upon asssessment, his back pain was reproduced with SLR, active hip flexion in supine, hip extension in prone , AROM trunk extension > lateral flexion > flexion. However, there's no noticeable strength loss at LEs and his pain reduced with cues on gluteal and abdominal engagement during hip flexion and extension. There's noticeable excessive activation from lumbar paraspinals during AROM/PROM of B LEs and active trunk movements, who reports reproduction of LBP. Pt's BP was at 123/90 HR 90 and he also reports he has difficulty time relaxing his body. Pt also states he is stressed most of the time which contributes to his pain pattern. Pt will be a good candidate for skilled therapy for relaxation techniques, neuromuscular reeducation on hip and trunk musculature, postural stability and overall trunk strengthening. Physical Therapy Plan Frequency and Duration Frequency of Treatment 2x/Week Duration of Treatment 10 weeks Plan of Care Start Date 12/20/18 Plan of Care End Date 03/07/19 Therapeutic Interventions Therapeutic Interventions Balance Training Gait Training Home Exercise Program Joint Mobilizations Manual Therapy Neuromuscular Re-education Patient/Caregiver Education Self-Care/Home Management Soft Tissue Mobilization Taping Therapeutic Activities Therapeutic Exercises Modalities Cold Pack/Ice Massage Electric Stimulation Hot Packs Infrared Therapy Traction- Mechanical Ultrasound Next Visit Focus/Plan Next Note Type Treatment Note Next Visit Plan NM control on hip / abdominal engagement during hip motion trunk stability ex ( start with supine and prone) relaxtion techniques (deep breathing ex) provide HEP
--- NOTE | 2018-12-26 18:23 | PT.OTN ---
Current Diagnoses Low back pain (12/26/18) Arthrodesis status (12/26/18) Physical Therapy Treatment Note PT-OP-A Visit Information Start: 12/20/18 18:54 Freq: Status: Active Protocol: Document 12/26/18 16:47 HH (Rec: 12/26/18 18:23 HH [email or web address]) Out-Patient Physical Therapy Visit Information Visit Information Visit Type Treatment Note Visit Start Time 16:47 Visit Stop Time 17:30 Total Visit Minutes 43 Visit Number 2/60 Number of DISCOTHEQUE DANCER Visits 0 PT-OP-B Current Condition Start: 12/20/18 18:54 Freq: Status: Active Protocol: Document 12/20/18 16:45 HH (Rec: 12/20/18 19:28 HH [email or web address]) Current Condition History of Current Condition Onset Date many years ago Current Complaints Chronic LBP, difficulty in lifting and decreased activity tolerance History of Current Condition Pt presents to clinic with chronic LBP since many years ago. Pt had his first back surgery with L4-l5 Hemilaminectomy in 2016 and a recent L5-S1 TLIF on 09/28/18. Pt reports his back pain resolved for 2 months after 2nd surgery but it came back after he was lifting a box at work (he is restrictions free at this point) . He states his back pain has been getting worse since then R>L. He described his pain as achy at all times but sharp pain during twisting and lifting activities. He is unable to sit/ stand > 10 mins and moving around/ changing position tends to relieve pain temporarily. He is also unable to sleep recently due to his pain. He explained lying down usually feels good but unable to maintain one position for long period of time. Pt denies any radiating pain. 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 Prior Treatments and Tests L4-l5 Hemilaminectomy in 2016 and a recent L5-S1 TLIF on . Treatment Goals Patient/Caregiver Goals 1. To be pain free during bending, lifting and twisting motion 2. Able to sleep without waking at night Prior Functional Status Baseline Function- ADL's Independent Baseline Function- Mobility Independent Current Functional Impairments (Reported) Functional Limitations- Mobility/Gait Unable to sit/ deckhand maintenance one position > 10 mins Functional Limitations- Work/School Unable to lift more 20 lbs Personal Factors Other Personal Factors That May Effect OCD Therapy/Recovery fibromyalgia depression HBP chronic LBP PT-OP-C Subjective Start: 12/20/18 18:54 Freq: Status: Active Protocol: Document 12/26/18 16:47 HH (Rec: 12/26/18 18:23 HH [email or web address]) OP-PT Subjective Patient Comments Patient Comments I might not come to PT as often since i have to copay 40 % per visit. I would like to have some home exercises as well. PT-OP-E Functional Tests Start: 12/20/18 18:54 Freq: Status: Active Protocol: Document 12/20/18 16:45 HH (Rec: 12/20/18 19:28 HH [email or web address]) Functional Tests Other single leg balance Name of Test SLS Comment B LE = 1 min PT-OP-K Range of Motion Start: 12/20/18 18:54 Freq: Status: Active Protocol: Document 12/20/18 16:45 HH (Rec: 12/20/18 19:28 HH [email or web address]) Lumbar Spine Range of Motion Lumbar Spine Active Degrees Testing Position Standing Flexion 25 Extension 5 Lateral Flexion Left 20 Lateral Flexion Right 20 ROM Limitations Pain Comments sig, limitation for lumbar extension with compensatory thoracic extension PT-OP-L Special Tests Start: 12/20/18 18:54 Freq: Status: Active Protocol: Document 12/20/18 16:45 HH (Rec: 12/20/18 19:28 HH [email or web address]) Special Tests Lumbar Spine Special Tests hip ext in prone Test Results +VE B Comments excessive lumbar /qL paraspinals activation noted supine leg lift Test Results +VE B Comments reduced pain with abdominal engagement Straight Leg Raise Test Results +VE B Prone Instability Test Test Results +ve Comments cues on gluteal engagement PT-OP-M Strength Start: 12/20/18 18:54 Freq: Status: Active Protocol: Document 12/20/18 16:45 HH (Rec: 12/20/18 19:28 HH [email or web address]) Hip Strength Hip Manual Muscle Testing Right Flexion (L2) 5 Normal Extension (S1) 4+ Good+ Abduction 4+ Good+ Adduction 5 Normal Left Flexion (L2) 5 Normal Extension (S1) 4+ Good+ Abduction 4+ Good+ Adduction 5 Normal PT-OP-Q Treatments Start: 12/20/18 18:54 Freq: Status: Active Protocol: Document 12/26/18 16:47 HH (Rec: 12/26/18 18:23 [email or web address]) Therapeutic Exercises Supine Exercises hamstring glide Supine Exercise Name hamstrings stretch Side bilateral Reps/Minutes 5 mins Comments with knee ext and df bridging Side bilateral Reps/Minutes 5 mins Comments cues on abdominal brace and gluteal engagement Prone Exercises prone extension Side bilateral Reps/Minutes 20 x 2 Comments stop at painful range. child pose Side bilateral Reps/Minutes 20 x 2 cat camel Side bilateral Reps/Minutes 20 x 2 Standing Exercises standing bending over. Standing Exercise Name trunk segemental flexion Reps/Minutes 10 x 2 Comments cues on eccentric control hip hinge Side bilateral Equipment Used bar Reps/Minutes 10 mins Comments cues on hip flexion Manual Therapy Treatment Soft Tissue Mobilization B lumbar paraspinals Mobilization Type Cross-Friction Sustained Pressure Trigger Point Release Intensity/Depth Moderate Body Position Prone B QL Mobilization Type Cross-Friction Sustained Pressure Trigger Point Release Intensity/Depth Moderate Body Position Prone PT-OP-T Assessment and Plan Start: 12/20/18 18:54 Freq: Status: Active Protocol: Document 12/26/18 16:47 (Rec: 12/26/18 18:23 [email or web address]) Physical Therapy Assessment Goals strength Impairment Pt is unable to lift objects > 25 lbs due to pain Short Term Goal (STG) Pt will be able to lift objects > 25lbs from waist level without backpain to similate his work situation. STG Duration 5 weeks Senior Care Goal (LTG) Pt will be able to lift objects > 25lbs from the floor without backpain to similate his work situation. LTG Duration 10 weeks activity tolerance Impairment pt is unable to júnior sit/ stand >10 mins Short Term Goal (STG) Pt will be able to sit/ stand > 10 mins with minimal of back pain in order to optimize his work performance STG Duration 5 weeks Marketing Pr Intern Goal (LTG) Pt will be able to sit/ stand > 20 mins with minimal of back pain in order to optimize his work performance LTG Duration 10 weeks Oswestry LBP Impairment pt scores 27 (20-39% impairments) on Oswestry LBP questionnaire Marketing Pr Intern Goal (LTG) pt will score <20 (1-19% impairments) on Oswestry LBP questionnaire to improve his overall functional mobility and quality of life. LTG Duration 10 weeks Assessment Summary Assessment Pt expressed concern regarding his copay. Might consider change his tx frequency to once a week starting from next week. Pt júnior tx very well. Lumbar extension tends to reproduce his pain but he did feel relief with flexion exercises. Educated pt on hip hinge today and he did not c/o any discomfort. HEP with hamstrings stretch, child pose , prone extension and hip hinge/ Physical Therapy Plan Next Visit Focus/Plan Next Note Type Treatment Note Next Visit Plan review HEP, hip hinge cont NM control on hip / abdominal engagement during hip motion trunk stability ex ( start with supine and prone) relaxtion techniques (deep breathing ex) J-curl
--- NOTE | 2018-12-28 18:56 | PT.OTN ---
Current Diagnoses Low back pain (12/28/18) Arthrodesis status (12/28/18) Physical Therapy Treatment Note PT-OP-A Visit Information Start: 12/20/18 18:54 Freq: Status: Active Protocol: Document 12/28/18 16:48 HH (Rec: 12/28/18 18:56 HH [email or web address]) Out-Patient Physical Therapy Visit Information Visit Information Visit Type Treatment Note Visit Start Time 16:48 Visit Stop Time 17:32 Total Visit Minutes 44 Visit Number 3/60 Number of QUALITY ASSURANCE PROJECT MANAGER Visits 0 PT-OP-B Current Condition Start: 12/20/18 18:54 Freq: Status: Active Protocol: Document 12/20/18 16:45 HH (Rec: 12/20/18 19:28 HH [email or web address]) Current Condition History of Current Condition Onset Date many years ago Current Complaints Chronic LBP, difficulty in lifting and decreased activity tolerance History of Current Condition Pt presents to clinic with chronic LBP since many years ago. Pt had his first back surgery with L4-l5 Hemilaminectomy in 2016 and a recent L5-S1 TLIF on 09/28/18. Pt reports his back pain resolved for 2 months after 2nd surgery but it came back after he was lifting a box at work (he is restrictions free at this point) . He states his back pain has been getting worse since then R>L. He described his pain as achy at all times but sharp pain during twisting and lifting activities. He is unable to sit/ stand > 10 mins and moving around/ changing position tends to relieve pain temporarily. He is also unable to sleep recently due to his pain. He explained lying down usually feels good but unable to maintain one position for long period of time. Pt denies any radiating pain. 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 Prior Treatments and Tests L4-l5 Hemilaminectomy in 2016 and a recent L5-S1 TLIF on . Treatment Goals Patient/Caregiver Goals 1. To be pain free during bending, lifting and twisting motion 2. Able to sleep without waking at night Prior Functional Status Baseline Function- ADL's Independent Baseline Function- Mobility Independent Current Functional Impairments (Reported) Functional Limitations- Mobility/Gait Unable to sit/ computer trainer one position > 10 mins Functional Limitations- Work/School Unable to lift more 20 lbs Personal Factors Other Personal Factors That May Effect OCD Therapy/Recovery fibromyalgia depression HBP chronic LBP PT-OP-C Subjective Start: 12/20/18 18:54 Freq: Status: Active Protocol: Document 12/28/18 16:48 HH (Rec: 12/28/18 18:56 HH [email or web address]) OP-PT Subjective Patient Comments Patient Comments I've been doing my exercises and it feels very good and able to sleep very well. Using hip hinge allows me to brain picker things from floor without hurting. PT-OP-E Functional Tests Start: 12/20/18 18:54 Freq: Status: Active Protocol: Document 12/20/18 16:45 HH (Rec: 12/20/18 19:28 HH [email or web address]) Functional Tests Other single leg balance Name of Test SLS Comment B LE = 1 min PT-OP-K Range of Motion Start: 12/20/18 18:54 Freq: Status: Active Protocol: Document 12/20/18 16:45 HH (Rec: 12/20/18 19:28 HH [email or web address]) Lumbar Spine Range of Motion Lumbar Spine Active Degrees Testing Position Standing Flexion 25 Extension 5 Lateral Flexion Left 20 Lateral Flexion Right 20 ROM Limitations Pain Comments sig, limitation for lumbar extension with compensatory thoracic extension PT-OP-L Special Tests Start: 12/20/18 18:54 Freq: Status: Active Protocol: Document 12/20/18 16:45 HH (Rec: 12/20/18 19:28 HH [email or web address]) Special Tests Lumbar Spine Special Tests hip ext in prone Test Results +VE B Comments excessive lumbar /qL paraspinals activation noted supine leg lift Test Results +VE B Comments reduced pain with abdominal engagement Straight Leg Raise Test Results +VE B Prone Instability Test Test Results +ve Comments cues on gluteal engagement PT-OP-M Strength Start: 12/20/18 18:54 Freq: Status: Active Protocol: Document 12/20/18 16:45 HH (Rec: 12/20/18 19:28 HH [email or web address]) Hip Strength Hip Manual Muscle Testing Right Flexion (L2) 5 Normal Extension (S1) 4+ Good+ Abduction 4+ Good+ Adduction 5 Normal Left Flexion (L2) 5 Normal Extension (S1) 4+ Good+ Abduction 4+ Good+ Adduction 5 Normal PT-OP-Q Treatments Start: 12/20/18 18:54 Freq: Status: Active Protocol: Document 12/28/18 16:48 HH (Rec: 12/28/18 18:56 HH [email or web address]) Therapeutic Exercises Prone Exercises hip extension Prone Exercise Name unilateral Reps/Minutes 20 x2 Comments cues on gluteal engagement prone extension Side bilateral Reps/Minutes 20 x 2 Comments stop at painful range. child pose Side bilateral Reps/Minutes 20 x 2 cat camel Side bilateral Reps/Minutes 20 x 2 Standing Exercises standing hip extension Standing Exercise Name unilateral Reps/Minutes 2 0x2 Comments cues on glute engagement nohemy curl Side bilateral Reps/Minutes 5 mins Comments hEP demonstration standing bending over. Standing Exercise Name trunk segemental flexion Reps/Minutes 10 x 2 Comments cues on eccentric control hip hinge Side bilateral Equipment Used 10 lbs DB Reps/Minutes 10 x5 Comments cues on hip flexion Manual Therapy Treatment Soft Tissue Mobilization B lumbar paraspinals Mobilization Type Cross-Friction Sustained Pressure Trigger Point Release Intensity/Depth Moderate Body Position Prone B QL Mobilization Type Cross-Friction Sustained Pressure Trigger Point Release Intensity/Depth Moderate Body Position Prone PT-OP-T Assessment and Plan Start: 12/20/18 18:54 Freq: Status: Active Protocol: Document 12/28/18 16:48 (Rec: 12/28/18 18:56 [email or web address]) Physical Therapy Assessment Assessment Summary Assessment Pt progressed very well without c/o back pain for the past 2 days. Pt also denies pain with gluteal engagement for hip extension/ walking, but increase in pain with lumbar extension. Educated pt on exercise progression since pt is going to cancel all his future appt due to high copay. Pt has a very good understanding on safe body mechanics , exercise presciption at the end of session.
--- NOTE | 2019-02-27 16:16 | PT.OPDS ---
Current Diagnoses Low back pain (12/28/18) Arthrodesis status (12/28/18) Visit Care Team Role Provider Type Jose Raul Kang MD Attending Provider Physician Specialty: Orthopedic Surgery Address: [address] [place] [address], [place], [address] Email: [email or web address] Visit Number Visit Number Discharge Summary PT-OP-B Current Condition Start: 12/20/18 18:54 Freq: Status: Active Protocol: Document 12/20/18 16:45 HH (Rec: 12/20/18 19:28 HH [email or web address]) Current Condition History of Current Condition Onset Date many years ago Current Complaints Chronic LBP, difficulty in lifting and decreased activity tolerance History of Current Condition Pt presents to clinic with chronic LBP since many years ago. Pt had his first back surgery with L4-l5 Hemilaminectomy in 2016 and a recent L5-S1 TLIF on 09/28/18. Pt reports his back pain resolved for 2 months after 2nd surgery but it came back after he was lifting a box at work (he is restrictions free at this point) . He states his back pain has been getting worse since then R>L. He described his pain as achy at all times but sharp pain during twisting and lifting activities. He is unable to sit/ stand > 10 mins and moving around/ changing position tends to relieve pain temporarily. He is also unable to sleep recently due to his pain. He explained lying down usually feels good but unable to maintain one position for long period of time. Pt denies any radiating pain. 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 Prior Treatments and Tests L4-l5 Hemilaminectomy in 2016 and a recent L5-S1 TLIF on . Treatment Goals Patient/Caregiver Goals 1. To be pain free during bending, lifting and twisting motion 2. Able to sleep without waking at night Prior Functional Status Baseline Function- ADL's Independent Baseline Function- Mobility Independent Current Functional Impairments (Reported) Functional Limitations- Mobility/Gait Unable to sit/ trekking guide one position > 10 mins Functional Limitations- Work/School Unable to lift more 20 lbs Personal Factors Other Personal Factors That May Effect OCD Therapy/Recovery fibromyalgia depression HBP chronic LBP PT-OP-C Subjective Start: 12/20/18 18:54 Freq: Status: Active Protocol: Document 12/28/18 16:48 HH (Rec: 12/28/18 18:56 HH [email or web address]) OP-PT Subjective Patient Comments Patient Comments I've been doing my exercises and it feels very good and able to sleep very well. Using hip hinge allows me to oyster picker things from floor without hurting. PT-OP-E Functional Tests Start: 12/20/18 18:54 Freq: Status: Active Protocol: Document 12/20/18 16:45 HH (Rec: 12/20/18 19:28 HH [email or web address]) Functional Tests Other single leg balance Name of Test SLS Comment B LE = 1 min PT-OP-K Range of Motion Start: 12/20/18 18:54 Freq: Status: Active Protocol: Document 12/20/18 16:45 HH (Rec: 12/20/18 19:28 HH [email or web address]) Lumbar Spine Range of Motion Lumbar Spine Active Degrees Testing Position Standing Flexion 25 Extension 5 Lateral Flexion Left 20 Lateral Flexion Right 20 ROM Limitations Pain Comments sig, limitation for lumbar extension with compensatory thoracic extension PT-OP-L Special Tests Start: 12/20/18 18:54 Freq: Status: Active Protocol: Document 12/20/18 16:45 HH (Rec: 12/20/18 19:28 HH [email or web address]) Special Tests Lumbar Spine Special Tests hip ext in prone Test Results +VE B Comments excessive lumbar /qL paraspinals activation noted supine leg lift Test Results +VE B Comments reduced pain with abdominal engagement Straight Leg Raise Test Results +VE B Prone Instability Test Test Results +ve Comments cues on gluteal engagement PT-OP-M Strength Start: 12/20/18 18:54 Freq: Status: Active Protocol: Document 12/20/18 16:45 HH (Rec: 12/20/18 19:28 HH [email or web address]) Hip Strength Hip Manual Muscle Testing Right Flexion (L2) 5 Normal Extension (S1) 4+ Good+ Abduction 4+ Good+ Adduction 5 Normal Left Flexion (L2) 5 Normal Extension (S1) 4+ Good+ Abduction 4+ Good+ Adduction 5 Normal PT-OP-T Assessment and Plan Start: 12/20/18 18:54 Freq: Status: Active Protocol: Document 02/27/19 16:15 HH (Rec: 02/27/19 16:16 HH [email or web address]) Physical Therapy Plan Discharge Physical Therapy Discharge Reasons Patient Request Discharge Comments Pt requested from last visit to be d/c from PT due to high copay. Pt also reported his pain signficiant reduced after learning hip hinge pattern.
== END 2018-12-29 12:35 ==
LOC: PHYS 16:45
PROVIDERS: Visit Provider Orthopaedic Surgery Orthopaedic Surgery of the Spine
DX: M54.5 Low back pain (principal); Z98.1 Arthrodesis status
CPT/HCPCS: 97110; 97112; 97140; 97161

== ENCOUNTER → 2019-02-06 10:18 | Outpatient (CLI) | payer OTHER, SELFPAY ==
[2018-09-28 12:31] VITALS: BMI 25.2
== END ==
DX: Z23 Encounter for immunization (principal)
CPT/HCPCS: 90471; 90686

== ENCOUNTER → 2019-09-05 15:48 | Outpatient (CLI) | payer OTHER, SELFPAY ==
[2018-09-28 12:31] VITALS: BMI 25.2
[2019-09-05 15:57] LABS: Bacteria Urine None Seen; RBC Urine None Seen (0-5/HPF); WBC Urine None Seen (0-5/HPF)
[2019-09-05 16:30] LABS: Add Manual Diff / Slide Review NO; Basophils Absolute Auto 0 /uL (0-100); Basophils Percent Auto 0.3 % (0-2); Eosinophils Absolute Auto 100 /uL (0-450); Eosinophils Percent Auto 2.1 % (2-4); Hematocrit 46.8 % (41-53); Hemoglobin 16.1 g/dL (13.5-17.5); Lymphocytes Absolute Auto 1000 /uL (1100-4500); Lymphocytes Percent Auto 14.8 % (25-40); Mean Corpuscular HGB Conc 34.4 % (30-36); Mean Corpuscular Hemoglobin 31.2 PG (26-34); Mean Corpuscular Volume 90.7 fL (80-100); Monocytes Absolute Auto 600 /uL (0-900); Neutrophils Absolute Auto 5100 /uL (1500-7000); Neutrophils Percent Auto 73.8 % (50-75); Platelet Count 239 X10^3/uL (150-400); Red Blood Cell Count 5.16 X10^6/uL (4.5-5.9); Red Cell Distribution Width 13.5 % (11.6-14.8); White Blood Cell Count 6.9 X10^3/uL (4.5-11.0)
[2019-09-05 16:33] LABS: Alanine Aminotransferase 35 IU/L (<50); Albumin 5.1 g/dL (3.5-5.0); Albumin Globulin Ratio 1.5 (1.0-2.8); Alkaline Phosphatase 67 U/L (38-126); Appearance Urine UA CLEAR; Aspartate Aminotransferase 37 IU/L (17-59); Bilirubin Total 0.5 mg/dL (0.2-1.3); Bilirubin Urine UA NEGATIVE (NEGATIVE); Blood Urea Nitrogen 20 mg/dL (9-20); Calcium 10.5 mg/dL (8.4-10.2); Carbon Dioxide 31 mmol/L (22-32); Chloride 97 mmol/L (98-107); Color Urine UA YELLOW; Estimated Glomerular Filt Rate > 60.0 mL/min (>60); Globulin 3.4 g/dL (1.7-4.1); Glucose 92 mg/dL (70-100); Glucose Urine UA NEGATIVE (Negative); HEMOLYSIS 26 (0-50); Ketones Urine UA NEGATIVE (NEGATIVE); Leukocyte Esterase Urine UA NEGATIVE (NEGATIVE); Nitrite Urine UA NEGATIVE (Negative); Occult Blood Urine UA NEGATIVE (Negative); Potassium 4.1 mmol/L (3.4-5.1); Protein Urine UA NEGATIVE (Negative); Sodium 139 mmol/L (137-145); Total Protein 8.5 g/dL (6.3-8.2); Urobilinogen Urine UA 0.2 E.U./dL (0.2)
[2019-09-05 16:59] LABS: Amorphous Sediment Urine 2+; Culture Indicated Urine Cult Not Indicated
[2019-09-07 06:36] LABS: Parathyroid Hormone Int 28 pg/mL (15-65)
== END ==
PROVIDERS: PCP Student in an Organized Health Care Education/Training Program; Referring Provider Student in an Organized Health Care Education/Training Program; Visit Provider Student in an Organized Health Care Education/Training Program
DX: R10.9 Unspecified abdominal pain (principal)
CPT/HCPCS: 36415; 80053; 81001; 83970; 85025

== ENCOUNTER → 2019-09-06 09:35 | Outpatient (CLI) | payer OTHER, SELFPAY ==
[2018-09-28 12:31] VITALS: BMI 25.2
--- NOTE | 2019-09-06 09:50 | DI.CT.S_ITS ---
PROCEDURE: CT ABDOMEN PELVIS WO/W CON INDICATIONS: ACUTE LEFT LOWER QUAD PAIN TECHNIQUE: After the administration of oral contrast, 5 mm thick sections acquired from the diaphragms to the iliac crests. After the administration of intravenous contrast, 5 mm thick sections acquired from the diaphragms to the symphysis. 5 mm thick coronal and sagittal reformats were acquired. For radiation dose reduction, the following was used: automated exposure control, adjustment of mA and/or kV according to patient size. COMPARISON: None. FINDINGS: Image quality: Excellent. ABDOMEN: Lung bases: Lung bases are clear. Heart size is normal. Solid organs: Liver is normal in size and enhancement. Gallbladder is normal. Biliary system is non-dilated. Pancreas enhances normally. Spleen is normal in size and enhancement. No adrenal nodules. Right kidney is decreased in size. There is a large cortical scar in the right upper pole with cystic changes. No renal stone or hydronephrosis. Bowel and peritoneum: Stomach, small and large bowel loops are normal in caliber and wall thickness. Normal appendix. No free fluid or air. Nodes and vessels: No retroperitoneal or mesenteric adenopathy by size criteria. Aorta and inferior vena are normal in caliber. Miscellaneous: No ventral hernias. PELVIS: Genitourinary: Bladder is a semicontracted. Bladder wall may be mildly thickened. Enlarged prostate. Miscellaneous: No inguinal hernias or adenopathy. Bones: No suspicious bony lesions. No vertebral body compression fractures. Discectomy and posterior fusion at L5-S1. IMPRESSION: 1. No CT findings to explain acute left lower quadrant pain. 2. 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 3. Bladder wall may be mildly thickened but bladder is semicontracted. Dictated by: Jaime Murray M.D. on 09/06/2019 at 10:42 Approved by: Jaime Murray M.D. on 09/06/2019 at 10:57
== END ==
PROVIDERS: PCP Student in an Organized Health Care Education/Training Program; Referring Provider Student in an Organized Health Care Education/Training Program; Visit Provider Student in an Organized Health Care Education/Training Program
DX: R10.32 Left lower quadrant pain (principal); N28.9 Disorder of kidney and ureter, unspecified; N40.0 Benign prostatic hyperplasia without lower urinary tract symptoms
CPT/HCPCS: 74178; Q9967

== ENCOUNTER → 2019-11-30 13:58 | Outpatient (CLI) | payer OTHER, SELFPAY ==
[2018-09-28 12:31] VITALS: BMI 25.2
[2019-11-30 14:20] LABS: Cholesterol 189 mg/dL (140-199); HDL Cholesterol 59 mg/dL (40-60); LDL Cholesterol Calculated 106 mg/dL (<100); Triglycerides 120 mg/dL (35-150)
[2019-12-05 06:08] LABS: Percent Free Testosterone 2.71 % (1.50-4.20); Testosterone Free 8.56 ng/dL (5.00-21.00)
== END ==
PROVIDERS: PCP Student in an Organized Health Care Education/Training Program; Referring Provider Student in an Organized Health Care Education/Training Program; Visit Provider Student in an Organized Health Care Education/Training Program
DX: Z00.00 Encounter for general adult medical examination without abnormal findings (principal); E29.1 Testicular hypofunction; E78.5 Hyperlipidemia, unspecified; Z79.890 Hormone replacement therapy
CPT/HCPCS: 80061; 84402; 84403

== ENCOUNTER → 2020-02-14 14:56 | Outpatient (CLI) | payer OTHER, SELFPAY ==
[2018-09-28 12:31] VITALS: BMI 25.2
== END ==
PROVIDERS: PCP Student in an Organized Health Care Education/Training Program; Referring Provider Internal Medicine; Visit Provider Internal Medicine
DX: Z23 Encounter for immunization (principal)
CPT/HCPCS: 90471; 90686

== ENCOUNTER → 2020-05-08 12:30 | Outpatient (CLI) | payer OTHER, SELFPAY ==
[2018-09-28 12:31] VITALS: BMI 25.2
[2020-05-08] MEDS: COVID-19 VACC(MODERNA-1)/PF 100 MCG/0.5 ML VIAL IM (12:38)
== END ==
PROVIDERS: PCP Student in an Organized Health Care Education/Training Program; Visit Provider Internal Medicine
DX: Z23 Encounter for immunization (principal)
CPT/HCPCS: 0011A; 91301

== ENCOUNTER → 2020-06-04 10:43 | Outpatient (CLI) | payer OTHER, SELFPAY ==
[2018-09-28 12:31] VITALS: BMI 25.2
[2020-06-04] MEDS: COVID-19 VACC #2, MRNA(MOD) 100 MCG/0.5 ML VIAL IM (10:47)
== END ==
PROVIDERS: PCP Student in an Organized Health Care Education/Training Program; Visit Provider Internal Medicine
DX: Z23 Encounter for immunization (principal)
CPT/HCPCS: 0012A; 91301

== ENCOUNTER → 2021-02-24 | Outpatient (CLI) | payer OTHER, SELFPAY ==
[2018-09-28 12:31] VITALS: BMI 25.2
== END ==
PROVIDERS: PCP Student in an Organized Health Care Education/Training Program; Referring Provider Internal Medicine; Visit Provider Internal Medicine
DX: Z23 Encounter for immunization (principal)
CPT/HCPCS: 90471; 90686

== ENCOUNTER → 2021-03-12 08:56 | Outpatient (CLI) | payer OTHER, SELFPAY ==
[2018-09-28 12:31] VITALS: BMI 25.2
[2021-03-12 09:17] LABS: Add Manual Diff / Slide Review NO; Basophils Absolute Auto 0 /uL (0-100); Basophils Percent Auto 0.5 % (0-2); Eosinophils Absolute Auto 200 /uL (0-450); Eosinophils Percent Auto 3.4 % (2-4); Hematocrit 42.2 % (41-53); Hemoglobin 14.7 g/dL (13.5-17.5); Lymphocytes Absolute Auto 1000 /uL (1100-4500); Lymphocytes Percent Auto 17.6 % (25-40); Mean Corpuscular HGB Conc 34.8 % (30-36); Mean Corpuscular Hemoglobin 30.4 PG (26-34); Mean Corpuscular Volume 87.3 fL (80-100); Monocytes Absolute Auto 400 /uL (0-900); Monocytes Percent Auto 7.4 % (3-14); Neutrophils Absolute Auto 3900 /uL (1500-7000); Neutrophils Percent Auto 71.1 % (50-75); Platelet Count 222 X10^3/uL (150-400); Red Blood Cell Count 4.83 X10^6/uL (4.5-5.9); Red Cell Distribution Width 13.6 % (11.6-14.8); White Blood Cell Count 5.4 X10^3/uL (4.5-11.0)
[2021-03-12 09:32] LABS: Hemoglobin A1C% w Est Avg Glu 5.3 % (4.0-6.0)
[2021-03-12 11:20] LABS: Alanine Aminotransferase 30 IU/L (<50); Albumin Globulin Ratio 1.9 (1.0-2.8); Alkaline Phosphatase 56 U/L (38-126); Aspartate Aminotransferase 33 IU/L (17-59); BUN Creatinine Ratio 20.8 (6-22); Bilirubin Total 0.6 mg/dL (0.2-1.3); Blood Urea Nitrogen 16 mg/dL (9-20); Carbon Dioxide 28 mmol/L (22-32); Chloride 98 mmol/L (98-107); Cholesterol 211 mg/dL (140-199); Estimated Glomerular Filt Rate > 60.0 mL/min (>60); Globulin 2.6 g/dL (1.7-4.1); Glucose 95 mg/dL (70-100); HDL Cholesterol 67 mg/dL (40-60); HEMOLYSIS < 15 (0-50); LDL Cholesterol Calculated 109 mg/dL (<100); Potassium 4.6 mmol/L (3.4-5.1); Sodium 137 mmol/L (137-145); Total Protein 7.6 g/dL (6.3-8.2); Triglycerides 173 mg/dL (35-150)
[2021-03-12 11:44] LABS: Thyroid Stimulating Hormone 0.923 uIU/mL (0.47-4.68)
== END ==
PROVIDERS: PCP Student in an Organized Health Care Education/Training Program; Referring Provider Student in an Organized Health Care Education/Training Program; Visit Provider Student in an Organized Health Care Education/Training Program
DX: Z00.00 Encounter for general adult medical examination without abnormal findings (principal); I10 Essential (primary) hypertension; E78.5 Hyperlipidemia, unspecified
CPT/HCPCS: 36415; 80053; 80061; 83036; 84443; 85025

== ENCOUNTER → 2021-03-13 13:55 | Outpatient (CLI) | payer OTHER, SELFPAY ==
[2018-09-28 12:31] VITALS: BMI 25.2
[2021-03-13] MEDS: COVID-19 VACC #3, MRNA(MOD) 50 MCG/0.25 ML VIAL IM (13:57)
== END ==
PROVIDERS: PCP Student in an Organized Health Care Education/Training Program; Visit Provider Internal Medicine
DX: Z23 Encounter for immunization (principal)
CPT/HCPCS: 0013A; 91301

== ENCOUNTER → 2021-04-13 08:48 | Outpatient (CLI) | payer OTHER, SELFPAY ==
[2018-09-28 12:31] VITALS: BMI 25.2
[2021-04-13 09:56] LABS: Uric Acid 4.3 mg/dL (3.5-8.5)
== END ==
PROVIDERS: PCP Student in an Organized Health Care Education/Training Program; Referring Provider Student in an Organized Health Care Education/Training Program; Visit Provider Student in an Organized Health Care Education/Training Program
DX: M25.522 Pain in left elbow (principal)
CPT/HCPCS: 36415; 84550

== ENCOUNTER → 2021-04-29 08:17 | Outpatient (CLI) | payer OTHER, SELFPAY ==
[2018-09-28 12:31] VITALS: BMI 25.2
--- NOTE | 2021-04-29 | DI.RAD.S_ITS ---
PROCEDURE: XR ELBOW LT 2V INDICATIONS: Left elbow pain TECHNIQUE: 3 views of the elbow were acquired. COMPARISON: None. FINDINGS: Bones: No fractures or dislocations. No suspicious bony lesions. Soft tissues: No elbow joint effusion. No suspicious soft tissue calcifications. IMPRESSION: No fracture. No osseous lesion. If symptoms and/or clinical suspicion for pathology persists, further assessment with repeat radiographs (7-10 days) or advanced imaging (e.g. CT, MRI or bone scan) should be considered. Dictated by: Kamla Odom MD, PhD on 04/29/2021 at 13:12 Approved by: Kamla Odom MD, PhD on 04/29/2021 at 13:12
== END ==
PROVIDERS: PCP Student in an Organized Health Care Education/Training Program; Referring Provider Student in an Organized Health Care Education/Training Program; Visit Provider Student in an Organized Health Care Education/Training Program
DX: M25.522 Pain in left elbow (principal)
CPT/HCPCS: 73070

== ENCOUNTER → 2021-07-15 07:02 | Outpatient (CLI) | payer OTHER, SELFPAY ==
[2018-09-28 12:31] VITALS: BMI 25.2
--- NOTE | 2021-07-15 | DI.RAD.S_ITS ---
PROCEDURE: XR CHEST 2V INDICATIONS: Palpitations TECHNIQUE: 2 views of the chest were acquired. COMPARISON: None. FINDINGS: Surgical changes and devices: Anterior lower cervical fixation hardware is noted. Lungs and pleura: Lungs are clear. No pleural effusions or pneumothorax. Mediastinum: Tortuous aorta. Heart size is normal. Bones and chest wall: No suspicious bony abnormalities. Soft tissues appear unremarkable. IMPRESSION: No acute cardiopulmonary abnormality. Dictated by: Harry Guerra M.D. on 07/15/2021 at 8:28 Approved by: Harry Guerra M.D. on 07/15/2021 at 8:30
[2021-07-15 07:47] LABS: Appearance Urine UA CLEAR; Bilirubin Urine UA NEGATIVE (NEGATIVE); Color Urine UA YELLOW; Glucose Urine UA NEGATIVE (Negative); Ketones Urine UA NEGATIVE (NEGATIVE); Leukocyte Esterase Urine UA NEGATIVE (NEGATIVE); Nitrite Urine UA NEGATIVE (Negative); Occult Blood Urine UA NEGATIVE (Negative); Protein Urine UA NEGATIVE (Negative); Urobilinogen Urine UA 0.2 E.U./dL (0.2)
[2021-07-15 07:55] LABS: Add Manual Diff / Slide Review NO; Bacteria Urine None Seen; Basophils Absolute Auto 0 /uL (0-100); Basophils Percent Auto 0.6 % (0-2); Culture Indicated Urine Cult Not Indicated; Eosinophils Absolute Auto 200 /uL (0-450); Eosinophils Percent Auto 3.7 % (2-4); Hematocrit 41.4 % (41-53); Hemoglobin 13.8 g/dL (13.5-17.5); Lymphocytes Absolute Auto 700 /uL (1100-4500); Lymphocytes Percent Auto 14.3 % (25-40); Mean Corpuscular HGB Conc 33.3 % (30-36); Mean Corpuscular Hemoglobin 29.6 PG (26-34); Monocytes Absolute Auto 500 /uL (0-900); Monocytes Percent Auto 9.9 % (3-14); Neutrophils Absolute Auto 3500 /uL (1500-7000); Neutrophils Percent Auto 71.5 % (50-75); Platelet Count 229 X10^3/uL (150-400); RBC Urine None Seen (0-5/HPF); Red Blood Cell Count 4.65 X10^6/uL (4.5-5.9); Red Cell Distribution Width 13.1 % (11.6-14.8); WBC Urine None Seen (0-5/HPF); White Blood Cell Count 4.9 X10^3/uL (4.5-11.0)
[2021-07-15 08:02] LABS: Alanine Aminotransferase 29 IU/L (<50); Albumin 4.9 g/dL (3.5-5.0); Albumin Globulin Ratio 1.8 (1.0-2.8); Alkaline Phosphatase 50 U/L (38-126); Aspartate Aminotransferase 34 IU/L (17-59); BUN Creatinine Ratio 16.9 (6-22); Bilirubin Total 0.4 mg/dL (0.2-1.3); Blood Urea Nitrogen 15 mg/dL (9-20); Calcium 9.7 mg/dL (8.4-10.2); Carbon Dioxide 33 mmol/L (22-32); Chloride 103 mmol/L (98-107); Cholesterol 165 mg/dL (140-199); Estimated Glomerular Filt Rate > 60.0 mL/min (>60); Globulin 2.8 g/dL (1.7-4.1); Glucose 93 mg/dL (70-100); HDL Cholesterol 65 mg/dL (40-60); HEMOLYSIS < 15 (0-50); LDL Cholesterol Calculated 80 mg/dL (<100); Potassium 4.2 mmol/L (3.4-5.1); Sodium 140 mmol/L (137-145); Total Protein 7.7 g/dL (6.3-8.2); Triglycerides 98 mg/dL (35-150)
[2021-07-15 08:05] LABS: Hemoglobin A1C% w Est Avg Glu 5.2 % (4.0-6.0)
[2021-07-15 08:48] LABS: Thyroid Stimulating Hormone 0.716 uIU/mL (0.47-4.68)
== END ==
PROVIDERS: PCP Student in an Organized Health Care Education/Training Program; Referring Provider Student in an Organized Health Care Education/Training Program; Visit Provider Student in an Organized Health Care Education/Training Program
DX: R00.2 Palpitations (principal)
CPT/HCPCS: 36415; 71046; 80053; 80061; 81001; 83036; 84443; 85025

== ENCOUNTER → 2021-09-07 06:27 | Outpatient (CLI) | payer OTHER, SELFPAY ==
[2018-09-28 12:31] VITALS: BMI 25.2
--- NOTE | 2021-09-07 06:28 | DI.ECHO.S_ITS ---
[facility]---------+ [facility] +---------+ : : [address] : : : : [id number] : : : : Phone: [phone]---------+ Echocardiogram Report + + :Name: DELROY PERALTA Study Date: 09/07/2021 Height: 71 in : :[facility] ReadingLocation: Weight: 170 lb : : Gender: Male BSA: 2.0 m2 : :: 1970 Age: 50 yrs BP: 117/84 mmHg: :Reason For Study: Palpitations : :Ordering Physician: ALBINA, : :JARROD Performed By: Alirio Garner : :Referring: JARROD MONTEMAYOR : + + Interpretation Summary The ejection fraction is estimated to be 55-60%. Diastolic parameters suggest probable normal left ventricular diastolic function and normal filling pressures. The right ventricle is normal in size and function. No significant valvular abnormalities. Unable to estimate PASP. Left Ventricle: The left ventricle is normal in size and wall thickness. Left ventricular systolic function is normal. The ejection fraction is estimated to be 55-60%. There are no focal wall motion abnormalities. Diastolic parameters suggest probable normal left ventricular diastolic function and normal filling pressures. Right Ventricle: The right ventricle is normal in size and function. Atria: Both atria are normal in size. The interatrial septum grossly appears intact with no obvious evidence for an atrial septal defect. Mitral Valve: The mitral valve is normal in structure and function. There is no mitral regurgitation noted. Aortic Valve: The aortic valve is trileaflet. There is no aortic valve stenosis. There is trace aortic regurgitation. Tricuspid Valve: The tricuspid valve is normal in structure and function. No tricuspid regurgitation. Pulmonary artery pressures cannot be estimated because of the lack of a measurable TR jet velocity. Pulmonic Valve: The pulmonic valve is normal in structure and function. There is trace pulmonic regurgitation. Great Vessels: The aortic root is normal size. The dimensions of the ascending aorta are normal. The IVC is of normal diameter and collapses greater than 50% with a sniff. This suggests a low right atrial pressure of 3 mm Hg. Pericardium/ Pleura There is no pericardial effusion. There is no pleural effusion. MMode/2D Measurements & Calculations LVIDd: 5.1 cm LVOT diam: 2.4 cm LVIDs: 3.4 cm Ao root diam: 3.7 cm FS: 33.3 % asc Aorta Diam: 3.6 cm IVSd: 0.90 cm LVPWd: 0.90 cm LV cowart. diameter/BSA (cm/m^2): 2.6 LV sys. diameter/BSA (cm/m^2): 1.7 LA dimension: 3.2 cm TAPSE_phl: 2.0 cm LA A2 area: 16.3 cm2 LA A4 area: 16.2 cm2 LA length (vol): 5.0 cm LA vol: 44.9 ml LA vol index: 22.8 ml/m2 Doppler Measurements & Calculations Ao V2 max: 113.0 cm/sec LVOT Max Santos: 96.0 cm/sec Ao V2 mean: 82.7 cm/sec LV V1 max P.7 mmHg Ao max P.0 mmHg LV V1 VTI: 19.7 cm Ao mean P.0 mmHg OANH(I,D): 4.0 cm2 Ao V2 VTI: 22.1 cm OANH(V,D): 3.8 cm2 sev ratio: 0.89 OANH indexed to BSA (cm^2/m^2): 2.0 MV E max santos: 78.4 cm/sec SV(LVOT): 89.1 ml MV A max santos: 79.7 cm/sec MV E/A: 0.98 Med Peak E' Santos: 8.8 cm/sec E/E' med: 8.9 Lat Peak E' Santos: 12.8 cm/sec E/E' lat: 6.1 E/e' average: 7.5 MV dec time: 0.24 sec AV VR_phl: 0.85 MV P1/2t-pr_phl: 72.0 msec OANH(VTI)/BSA_phl: 2.0 Reading Physician:09:43 AM
== END ==
PROVIDERS: PCP Student in an Organized Health Care Education/Training Program; Referring Provider Student in an Organized Health Care Education/Training Program; Visit Provider Student in an Organized Health Care Education/Training Program
DX: R00.2 Palpitations (principal)
CPT/HCPCS: 93306

== ENCOUNTER → 2022-04-16 12:05 | Outpatient (CLI) | payer OTHER, SELFPAY ==
[2018-09-28 12:31] VITALS: BMI 25.2
--- NOTE | 2022-04-16 12:09 | DI.RAD.S_ITS ---
PROCEDURE: XR CERVICAL SPINE 4V OR 5V INDICATIONS: Other muscle spasm TECHNIQUE: 5 views of the cervical spine were acquired. COMPARISON: None. FINDINGS: Bones: No fractures or dislocations to the C6-C7 level. Straightening of the normal cervical lordosis, a finding which can be seen in the setting of muscle strain and/or spasm. Postsurgical changes from anterior C6-C7 fusion. Multilevel degenerative changes of the cervical spine are present. 2 mm retrolisthesis C2 on C3 which resolves with flexion suggestive of dynamic instability at this level. Soft tissues: Prevertebral soft tissues are normal in thickness. IMPRESSION: Mild degenerative changes of the cervical spine. Dictated by: Ephraim Pabon M.D. on 04/17/2022 at 10:07 Approved by: Ephraim Pabon M.D. on 04/17/2022 at 10:11
== END ==
PROVIDERS: Family Provider Family Medicine; PCP Family Medicine; Referring Provider Family Medicine; Visit Provider Family Medicine
DX: M62.838 Other muscle spasm (principal); M77.10 Lateral epicondylitis, unspecified elbow; M47.812 Spondylosis without myelopathy or radiculopathy, cervical region
CPT/HCPCS: 72050

== ENCOUNTER 2022-05-26 15:15 | Outpatient (RCR) | payer OTHER, SELFPAY ==
[2018-09-28 12:31] VITALS: BMI 25.2
--- NOTE | 2022-04-09 16:51 | PT.OIE ---
Current Diagnoses Stiffness of other specified joint, not elsewhere classified (04/09/22) Cervicalgia (04/09/22) Other muscle spasm (04/09/22) Lateral epicondylitis, unspecified elbow (04/09/22) Past Medical History (Last Updated 09/18/18 @ 14:12 by Emmy Caban, RN) Anxiety Depression HLD (hyperlipidemia) HTN (hypertension) Kidney stones Low back pain Sleep apnea Past Surgical History (Last Updated 09/18/18 @ 14:12 by Emmy Caban RN) History of kidney surgery Hx of microdiscectomy (08/20/16) Hx of sinus surgery S/P cervical spinal fusion (~2011) Visit Care Team Role Provider Type John Espitia MD Attending Provider Physician Family Provider Primary Care Provider Referring Provider Specialty: Family Practice Address: [facility] [place], [address] Email: [email or web address] Physical Therapy Initial Evaluation PT-OP-A Visit Information Start: 04/09/22 13:22 Freq: Status: Active Protocol: Document 04/09/22 12:00 DCW (Rec: 04/09/22 13:33 [facility] [id number]) Out-Patient Physical Therapy Visit Information Visit Information Visit Type Initial Evaluation Visit Start Time 12:00 Visit Stop Time 12:40 Total Visit Minutes 40 Visit Number 1 Number of OSS ARCHITECT Visits 0 Evaluation Information Evaluation Date 04/09/22 PT-OP-B Current Condition Start: 04/09/22 13:22 Freq: Status: Active Protocol: Document 04/09/22 12:00 DCW (Rec: 04/09/22 13:33 [facility] [id number]) Current Condition History of Current Condition Onset Date 6 week history Current Complaints Neck and right shoulder pain, stiffness, and muscle spasm History of Current Condition Pt is a 51 year old male presenting to skilled PT with a referral for lateral epicondylitis and neck pain. Pt reports he underwent a cervical fusion ~six years ago . Pt reports he was told shortly after surgery that his neck didn't actually fuse, and that he'll have problems in the future, maybe tomorrow , maybe in ten years. Reports that he woke up about six weeks ago with severe pain and muscle spasm in his neck and right shoulder. Unsure what actually happened, he was seen by his PCP, how told him he is having muscle spasm, and pt has been taking Flexeril, which helps to an extent. Pt reports that it helps make it tolerable, but the muscle is still really tight. Pt's end goal is to get approval for a CT scan to see if there has been a structural change since his surgery. As far as his epicondylitis referral, pt notes that he has been performing exercises and had an injection for his elbow pain, and is currently pain free with that, and has no ongoing complaints regarding his elbow. PT-OP-C Subjective Start: 04/09/22 13: Freq: Status: Active Protocol: Document 04/09/22 12:00 DCW (Rec: 04/09/22 13:33 DCW [id number]) OP-PT Subjective Patient Comments Patient Comments They told me I needed to do PT before a CT scan got approved, so here I am. Patient Questionnaires Neck Disability Index NDI Score 27/50 = 54% Neck Disability Index Impairment 40 to 59% Impaired (Score 20- 29) Quick Dash- Upper Extremity Quick Dash UE Score 47.73% Quick Dash UE Impairment 40 to 59% Impaired (Score 40- 59) OP-PT Pain Assessment Pain Assessment Grid Paper Pain Assessment Grid Completed Yes Location Right Neck Intensity 8 Scale Used Numeric (0 - 10) Frequency Constant Other Pain Alleviating Factors Flexeril PT-OP-F Manual Assessment Start: 04/09/22 13:22 Freq: Status: Active Protocol: Document 04/09/22 12:00 DCW (Rec: 04/09/22 13:43 DCW [id number]) Manual Assessments Soft Tissue Assessment Soft Tissue Mobility Assessment Severe tone and tenderness to palpation 3/4: wincing and withdraw along right upper trap, scalenes, levator scap, SCM, and suboccipitals. Joint Mobility Assessment Joint Mobility Assessment Poor cervical mobility secondary to high muscle tone PT-OP-K Range of Motion Start: 04/09/22 13:22 Freq: Status: Active Protocol: Document 04/09/22 12:00 DCW (Rec: 04/09/22 13:43 DCW [id number]) Cervical Spine Range of Motion Cervical Spine Active Degrees Testing Position Sitting Flexion 35 Extension 45 Rotation Left 45 Rotation Right 38 Lateral Flexion Left 18 Lateral Flexion Right 25 ROM Limitations Soft Tissue Tightness,Muscle Tone,Pain Shoulder Goniometric Range of Motion Shoulder Bilateral Active Shoulder ROM WFL Yes Testing Position Sitting Comments Shoulder ROM WNL PT-OP-L Special Tests Start: 04/09/22 13:22 Freq: Status: Active Protocol: Document 04/09/22 12:00 DCW (Rec: 04/09/22 13:43 DCW [id number]) Special Tests Cervical Spine Special Tests Traction Test Results c/o pain Spurling's Test Test Results Negative Slump Test Results Positive R radicular Foraminal Compression Test Results Negative Alar Ligament Test Results Negative Shoulder Special Tests Passive ER Rotator Cuff Test Results Negative Centeno Harshil Impingement Test Results Negative Grind Labrum Test Results Negative Belly Press Test Results Negative Apprehension Test Test Results Negative PT-OP-Q Treatments Start: 04/09/22 13:22 Freq: Status: Active Protocol: Document 04/09/22 12:00 DCW (Rec: 04/09/22 13:33 DCW [id number]) Therapeutic Exercises Sitting Exercises Upper Trap Sitting Exercise Name UT stretch Side bilateral PT-OP-T Assessment and Plan Start: 04/09/22 13:22 Freq: Status: Active Protocol: Document 04/09/22 12:00 DCW (Rec: 04/09/22 16:51 DCW [id number]) Physical Therapy Assessment Rehab Potential Rehabilitation Potential Fair Evaluation Complexity Number of Personal Factors/Comorbidities 0 Number of Body Systems Impaired 3 Clinical Presentation at Evaluation Unstable Impairments Impairments Functional Activities, Functional Mobility,Pain,ROM, Soft Tissue Mobility,Tone Goals Two Impairment Pt presents with decreased cervical ROM due to increased muscle tone Half-Way Goal (LTG) Pt to improve cervical rotation to >60? bilaterally in order to improve ability to turn head to look for traffic while driving. LTG Duration 06/10/22 One Impairment Pt does not have an appropriate home exercise program Short Term Goal (STG) Pt to be independent and compliant with an appropriate HEP STG Duration 05/10/22 Assessment Summary Assessment Pt presents with signs and symptoms consistent with severe muscle spasm through right upper trap, scalenes, levator scap, SCM, and suboccipitals. Unclear at this moment what caused muscles to go into such intense spasm. No signs of cervical instability or rotator cuff involvement. Cervical special testing largely negative. Pt does have history of a cervical fusion that pt reports actually failed, which may be suddenly impacting pt' s muscle tone. Pt cervical ROM fairly significantly limited due to severe tone, will likely benefit from skilled therapeutic intervention including STM, stretching, and gentle strengthening for tone management. If pt does not make expected progress over the next 3-4 weeks, will likely benefit from advanced imaging. Physical Therapy Plan Frequency and Duration Frequency of Treatment 2x/Week Plan of Care Start Date 04/09/22 Plan of Care End Date 06/10/22 Therapeutic Interventions Therapeutic Interventions Home Exercise Program,Joint Mobilizations,Manual Therapy, Patient/Caregiver Education, Self-Care/Home Management,Soft Tissue Mobilization, Therapeutic Activities, Therapeutic Exercises Modalities Cold Pack/Ice Massage,Electric Stimulation,Hot Packs Next Visit Focus/Plan Next Note Type Treatment Note Next Visit Plan STM, stretching
--- NOTE | 2022-04-09 16:52 | PT.OPPOC ---
Physical, Occupational & Speech Therapy At [facility] Current Diagnoses Stiffness of other specified joint, not elsewhere classified (04/09/22) Cervicalgia (04/09/22) Other muscle spasm (04/09/22) Lateral epicondylitis, unspecified elbow (04/09/22) Visit Care Team Role Provider Type John Espitia MD Attending Provider Physician Family Provider Primary Care Provider Referring Provider Specialty: Family [facility] Address: [facility] [place], [address] Email: [email or web address] Plan Of Care PT-OP-T Assessment and Plan Start: 04/09/22 13:22 Freq: Status: Active Protocol: Document 04/09/22 12:00 DCW (Rec: 04/09/22 16:51 DCW [id number]) Physical Therapy Assessment Rehab Potential Rehabilitation Potential Fair Evaluation Complexity Number of Personal Factors/Comorbidities 0 Number of Body Systems Impaired 3 Clinical Presentation at Evaluation Unstable Impairments Impairments Functional Activities, Functional Mobility,Pain,ROM, Soft Tissue Mobility,Tone Goals Two Impairment Pt presents with decreased cervical ROM due to increased muscle tone Retirement Goal (LTG) Pt to improve cervical rotation to >60? bilaterally in order to improve ability to turn head to look for traffic while driving. LTG Duration 06/10/22 One Impairment Pt does not have an appropriate home exercise program Short Term Goal (STG) Pt to be independent and compliant with an appropriate HEP STG Duration 05/10/22 Assessment Summary Assessment Pt presents with signs and symptoms consistent with severe muscle spasm through right upper trap, scalenes, levator scap, SCM, and suboccipitals. Unclear at this moment what caused muscles to go into such intense spasm. No signs of cervical instability or rotator cuff involvement. Cervical special testing largely negative. Pt does have history of a cervical fusion that pt reports actually failed, which may be suddenly impacting pt' s muscle tone. Pt cervical ROM fairly significantly limited due to severe tone, will likely benefit from skilled therapeutic intervention including STM, stretching, and gentle strengthening for tone management. If pt does not make expected progress over the next 3-4 weeks, will likely benefit from advanced imaging. Physical Therapy Plan Frequency and Duration Frequency of Treatment 2x/Week Plan of Care Start Date 04/09/22 Plan of Care End Date 06/10/22 Therapeutic Interventions Therapeutic Interventions Home Exercise Program,Joint Mobilizations,Manual Therapy, Patient/Caregiver Education, Self-Care/Home Management,Soft Tissue Mobilization, Therapeutic Activities, Therapeutic Exercises Modalities Cold Pack/Ice Massage,Electric Stimulation,Hot Packs Next Visit Focus/Plan Next Note Type Treatment Note Next Visit Plan STM, stretching Plan of Care Dates Plan of Care Start Date 04/09/22 Plan of Care End Date 06/10/22 Electronically Signed by: Cole Avery, PT 04/09/22 0981 If you are in agreement with this Plan of Care, please return a signed and dated copy. I have reviewed this Plan of Care and certify that the skilled therapy services above are required to meet the patient?s needs. Physician Signature Date Printed Name and Credentials Clinical Instructor Signature Printed Name and Credentials
--- NOTE | 2022-04-16 12:01 | PT.OTN ---
Current Diagnoses Stiffness of other specified joint, not elsewhere classified (04/16/22) Cervicalgia (04/16/22) Other muscle spasm (04/16/22) Lateral epicondylitis, unspecified elbow (04/16/22) Physical Therapy Treatment Note PT-OP-A Visit Information Start: 04/09/22 13:22 Freq: Status: Active Protocol: Document 04/16/22 11:15 DCW (Rec: 04/16/22 12:00 DCW [id number]) Out-Patient Physical Therapy Visit Information Visit Information Visit Type Treatment Note Visit Start Time 11:15 Visit Stop Time 12:00 Total Visit Minutes 45 Visit Number 2 Number of DOCUMENT SCANNER Visits 0 Evaluation Information Evaluation Date 04/09/22 PT-OP-B Current Condition Start: 04/09/22 13: Freq: Status: Active Protocol: Document 04/09/22 12:00 DCW (Rec: 04/09/22 13:33 DCW [id number]) Current Condition History of Current Condition Onset Date 6 week history Current Complaints Neck and right shoulder pain, stiffness, and muscle spasm History of Current Condition Pt is a 51 year old male presenting to skilled PT with a referral for lateral epicondylitis and neck pain. Pt reports he underwent a cervical fusion ~six years ago . Pt reports he was told shortly after surgery that his neck didn't actually fuse, and that he'll have problems in the future, maybe tomorrow , maybe in ten years. Reports that he woke up about six weeks ago with severe pain and muscle spasm in his neck and right shoulder. Unsure what actually happened, he was seen by his PCP, how told him he is having muscle spasm, and pt has been taking Flexeril, which helps to an extent. Pt reports that it helps make it tolerable, but the muscle is still really tight. Pt's end goal is to get approval for a CT scan to see if there has been a structural change since his surgery. As far as his epicondylitis referral, pt notes that he has been performing exercises and had an injection for his elbow pain, and is currently pain free with that, and has no onging complaints regarding his elbow. PT-OP-C Subjective Start: 04/09/22 13:22 Freq: Status: Active Protocol: Document 04/16/22 11:15 DCW (Rec: 04/16/22 12:00 DCW [id number]) OP-PT Subjective Patient Comments Patient Comments Pt reports he feels slightly better. PT-OP-F Manual Assessment Start: 04/09/22 13:22 Freq: Status: Active Protocol: Document 04/09/22 12:00 DCW (Rec: 04/09/22 13:43 MTW [id number]) Manual Assessments Soft Tissue Assessment Soft Tissue Mobility Assessment Severe tone and tenderness to palpation 3/4: wincing and withdraw along right upper trap, scalenes, levator scap, SCM, and suboccipitals. Joint Mobility Assessment Joint Mobility Assessment Poor cervical mobility secondary to high muscle tone PT-OP-K Range of Motion Start: 04/09/22 13:22 Freq: Status: Active Protocol: Document 04/09/22 12:00 DCW (Rec: 04/09/22 13:43 DCW [id number]) Cervical Spine Range of Motion Cervical Spine Active Degrees Testing Position Sitting Flexion 35 Extension 45 Rotation Left 45 Rotation Right 38 Lateral Flexion Left 18 Lateral Flexion Right 25 ROM Limitations Soft Tissue Tightness,Muscle Tone,Pain Shoulder Goniometric Range of Motion Shoulder Bilateral Active Shoulder ROM WFL Yes Testing Position Sitting Comments Shoulder ROM WNL PT-OP-L Special Tests Start: 04/09/22 13:22 Freq: Status: Active Protocol: Document 04/09/22 12:00 DCW (Rec: 04/09/22 13:43 DCW [id number]) Special Tests Cervical Spine Special Tests Traction Test Results c/o pain Spurling's Test Test Results Negative Slump Test Results Positive R radicular Foraminal Compression Test Results Negative Alar Ligament Test Results Negative Shoulder Special Tests Passive ER Rotator Cuff Test Results Negative Centeno Harshil Impingement Test Results Negative Grind Labrum Test Results Negative Belly Press Test Results Negative Apprehension Test Test Results Negative PT-OP-Q Treatments Start: 04/09/22 13:22 Freq: Status: Active Protocol: Document 04/16/22 11:15 DCW (Rec: 04/16/22 12:00 DCW [id number]) Therapeutic Exercises Supine Exercises Chin Tuck Supine Exercise Name Chin Tuck/Head Lift Sitting Exercises Cervical Extension Sitting Exercise Name Isometric Cervical Extension Resistance Lv 3 Resisted Rotation Sitting Exercise Name Cervical Rotation Side bilateral Resistance Lv 3 Manual Therapy Treatment Soft Tissue Mobilization Cervical paraspinals Body Location Paraspinals, suboccipitals, SCM, UT, Levator Mobilization Type Strumming,Sustained Pressure, Trigger Point Release Intensity/Depth Moderate Body Position Supine Manual Traction Cervical Details Cervical Traction PT-OP-T Assessment and Plan Start: 04/09/22 13:22 Freq: Status: Active Protocol: Document 04/16/22 11:15 DCW (Rec: 04/16/22 12:00 DCW [id number]) Physical Therapy Assessment Impairments Impairments Functional Activities, Functional Mobility,Pain,ROM, Soft Tissue Mobility,Tone Goals Two Impairment Pt presents with decreased cervical ROM due to increased muscle tone Manager Utilization Goal (LTG) Pt to improve cervical rotation to >60? bilaterally in order to improve ability to turn head to look for traffic while driving. LTG Duration 06/10/22 One Impairment Pt does not have an appropriate home exercise program Short Term Goal (STG) Pt to be independent and compliant with an appropriate HEP STG Duration 05/10/22 Assessment Summary Assessment Pt showing some mild improvement so far with cervical tone. Compliant with HEP so far, feels stretching has been beneficial Physical Therapy Plan Frequency and Duration Frequency of Treatment 2x/Week Plan of Care Start Date 04/09/22 Plan of Care End Date 06/10/22 Therapeutic Interventions Therapeutic Interventions Home Exercise Program,Joint Mobilizations,Manual Therapy, Patient/Caregiver Education, Self-Care/Home Management,Soft Tissue Mobilization, Therapeutic Activities, Therapeutic Exercises Modalities Cold Pack/Ice Massage,Electric Stimulation,Hot Packs Next Visit Focus/Plan Next Note Type Treatment Note Next Visit Plan STM, stretching
--- NOTE | 2022-04-20 15:13 | PT.OTN ---
Current Diagnoses Stiffness of other specified joint, not elsewhere classified (04/20/22) Cervicalgia (04/20/22) Other muscle spasm (04/20/22) Lateral epicondylitis, unspecified elbow (04/20/22) Physical Therapy Treatment Note PT-OP-A Visit Information Start: 04/09/22 13:22 Freq: Status: Active Protocol: Document 04/20/22 14:30 DCW (Rec: 04/20/22 15:13 DCW [id number]) Out-Patient Physical Therapy Visit Information Visit Information Visit Type Treatment Note Visit Start Time 14:30 Visit Stop Time 15:15 Total Visit Minutes 45 Visit Number 3 Number of MICROSTRATEGY DEVELOPER Visits 0 Evaluation Information Evaluation Date 04/09/22 PT-OP-B Current Condition Start: 04/09/22 13: Freq: Status: Active Protocol: Document 04/09/22 12:00 DCW (Rec: 04/09/22 13:33 DCW [id number]) Current Condition History of Current Condition Onset Date 6 week history Current Complaints Neck and right shoulder pain, stiffness, and muscle spasm History of Current Condition Pt is a 51 year old male presenting to skilled PT with a referral for lateral epicondylitis and neck pain. Pt reports he underwent a cervical fusion ~six years ago . Pt reports he was told shortly after surgery that his neck didn't actually fuse, and that he'll have problems in the future, maybe tomorrow , maybe in ten years. Reports that he woke up about six weeks ago with severe pain and muscle spasm in his neck and right shoulder. Unsure what actually happened, he was seen by his PCP, how told him he is having muscle spasm, and pt has been taking Flexeril, which helps to an extent. Pt reports that it helps make it tolerable, but the muscle is still really tight. Pt's end goal is to get approval for a CT scan to see if there has been a structural change since his surgery. As far as his epicondylitis referral, pt notes that he has been performing exercises and had an injection for his elbow pain, and is currently pain free with that, and has no onging complaints regarding his elbow. PT-OP-C Subjective Start: 04/09/22 13:22 Freq: Status: Active Protocol: Document 04/20/22 14:30 DCW (Rec: 04/20/22 15:13 DCW [id number]) OP-PT Subjective Patient Comments Patient Comments Pt notices increased popping and cracking following STM, however no associated pain. PT-OP-F Manual Assessment Start: 04/09/22 13:22 Freq: Status: Active Protocol: Document 04/09/22 12:00 DCW (Rec: 04/09/22 13:43 IAW [id number]) Manual Assessments Soft Tissue Assessment Soft Tissue Mobility Assessment Severe tone and tenderness to palpation 3/4: wincing and withdraw along right upper trap, scalenes, levator scap, SCM, and suboccipitals. Joint Mobility Assessment Joint Mobility Assessment Poor cervical mobility secondary to high muscle tone PT-OP-K Range of Motion Start: 04/09/22 13:22 Freq: Status: Active Protocol: Document 04/09/22 12:00 DCW (Rec: 04/09/22 13:43 [facility] [id number]) Cervical Spine Range of Motion Cervical Spine Active Degrees Testing Position Sitting Flexion 35 Extension 45 Rotation Left 45 Rotation Right 38 Lateral Flexion Left 18 Lateral Flexion Right 25 ROM Limitations Soft Tissue Tightness,Muscle Tone,Pain Shoulder Goniometric Range of Motion Shoulder Bilateral Active Shoulder ROM WFL Yes Testing Position Sitting Comments Shoulder ROM WNL PT-OP-L Special Tests Start: 04/09/22 13:22 Freq: Status: Active Protocol: Document 04/09/22 12:00 DCW (Rec: 04/09/22 13:43 [facility] [id number]) Special Tests Cervical Spine Special Tests Traction Test Results c/o pain Spurling's Test Test Results Negative Slump Test Results Positive R radicular Foraminal Compression Test Results Negative Alar Ligament Test Results Negative Shoulder Special Tests Passive ER Rotator Cuff Test Results Negative Centeno Harshil Impingement Test Results Negative Grind Labrum Test Results Negative Belly Press Test Results Negative Apprehension Test Test Results Negative PT-OP-Q Treatments Start: 04/09/22 13:22 Freq: Status: Active Protocol: Document 04/20/22 14:30 DCW (Rec: 04/20/22 15:13 DCW [id number]) Therapeutic Exercises Supine Exercises Upper Trap Stretch Supine Exercise Name UT Stretch Side bilateral Chin Tuck Supine Exercise Name Chin Tuck/Head Lift Manual Therapy Treatment Soft Tissue Mobilization Cervical paraspinals Body Location Paraspinals, suboccipitals, SCM, UT, Levator Mobilization Type Strumming,Sustained Pressure, Trigger Point Release Intensity/Depth Moderate Body Position Supine Manual Traction Cervical Details Cervical Traction PT-OP-T Assessment and Plan Start: 04/09/22 13:22 Freq: Status: Active Protocol: Document 04/20/22 14:30 DCW (Rec: 04/20/22 15:13 DCW [id number]) Physical Therapy Assessment Impairments Impairments Functional Activities, Functional Mobility,Pain,ROM, Soft Tissue Mobility,Tone Goals Two Impairment Pt presents with decreased cervical ROM due to increased muscle tone Usp Goal (LTG) Pt to improve cervical rotation to >60? bilaterally in order to improve ability to turn head to look for traffic while driving. LTG Duration 06/10/22 One Impairment Pt does not have an appropriate home exercise program Short Term Goal (STG) Pt to be independent and compliant with an appropriate HEP STG Duration 05/10/22 Assessment Summary Assessment ROM remeasured today, pt showing increased ROM by ~10? in nearly all measured planes, especially in flexion, left side-bending, and right rotation. Pt has so far been compliant with HEP Physical Therapy Plan Frequency and Duration Frequency of Treatment 2x/Week Plan of Care Start Date 04/09/22 Plan of Care End Date 06/10/22 Therapeutic Interventions Therapeutic Interventions Home Exercise Program,Joint Mobilizations,Manual Therapy, Patient/Caregiver Education, Self-Care/Home Management,Soft Tissue Mobilization, Therapeutic Activities, Therapeutic Exercises Modalities Cold Pack/Ice Massage,Electric Stimulation,Hot Packs Next Visit Focus/Plan Next Note Type Treatment Note Next Visit Plan STM, stretching
--- NOTE | 2022-05-12 16:44 | PT.OTN ---
Current Diagnoses Stiffness of other specified joint, not elsewhere classified (05/12/22) Cervicalgia (05/12/22) Other muscle spasm (05/12/22) Lateral epicondylitis, unspecified elbow (05/12/22) Physical Therapy Treatment Note PT-OP-A Visit Information Start: 04/09/22 13:22 Freq: Status: Active Protocol: Document 05/12/22 16:00 DCW (Rec: 05/12/22 16:43 DCW [id number]) Out-Patient Physical Therapy Visit Information Visit Information Visit Type Treatment Note Visit Start Time 16:00 Visit Stop Time 16:45 Total Visit Minutes 45 Visit Number 4 Number of MEDICAL CODING SPECIALIST Visits 0 Evaluation Information Evaluation Date 04/09/22 PT-OP-B Current Condition Start: 04/09/22 13:22 Freq: Status: Active Protocol: Document 04/09/22 12:00 DCW (Rec: 04/09/22 13:33 DCW [id number]) Current Condition History of Current Condition Onset Date 6 week history Current Complaints Neck and right shoulder pain, stiffness, and muscle spasm History of Current Condition Pt is a 51 year old male presenting to skilled PT with a referral for lateral epicondylitis and neck pain. Pt reports he underwent a cervical fusion ~six years ago . Pt reports he was told shortly after surgery that his neck didn't actually fuse, and that he'll have problems in the future, maybe tomorrow , maybe in ten years. Reports that he woke up about six weeks ago with severe pain and muscle spasm in his neck and right shoulder. Unsure what actually happened, he was seen by his PCP, how told him he is having muscle spasm, and pt has been taking Flexeril, which helps to an extent. Pt reports that it helps make it tolerable, but the muscle is still really tight. Pt's end goal is to get approval for a CT scan to see if there has been a structural change since his surgery. As far as his epicondylitis referral, pt notes that he has been performing exercises and had an injection for his elbow pain, and is currently pain free with that, and has no onging complaints regarding his elbow. PT-OP-C Subjective Start: 04/09/22 13:22 Freq: Status: Active Protocol: Document 05/12/22 16:00 DCW (Rec: 05/12/22 16:43 DCW [id number]) OP-PT Subjective Patient Comments Patient Comments Pt returns from [place], reports his pain was off and on, bothered him more when he was driving and after long travel days, has been using more muscle relaxers recently. PT-OP-F Manual Assessment Start: 04/09/22 13:22 Freq: Status: Active Protocol: Document 04/09/22 12:00 DCW (Rec: 04/09/22 13:43 WIW [id number]) Manual Assessments Soft Tissue Assessment Soft Tissue Mobility Assessment Severe tone and tenderness to palpation 3/4: wincing and withdraw along right upper trap, scalenes, levator scap, SCM, and suboccipitals. Joint Mobility Assessment Joint Mobility Assessment Poor cervical mobility secondary to high muscle tone PT-OP-K Range of Motion Start: 04/09/22 13:22 Freq: Status: Active Protocol: Document 04/09/22 12:00 DCW (Rec: 04/09/22 13:43 DCW [id number]) Cervical Spine Range of Motion Cervical Spine Active Degrees Testing Position Sitting Flexion 35 Extension 45 Rotation Left 45 Rotation Right 38 Lateral Flexion Left 18 Lateral Flexion Right 25 ROM Limitations Soft Tissue Tightness,Muscle Tone,Pain Shoulder Goniometric Range of Motion Shoulder Bilateral Active Shoulder ROM WFL Yes Testing Position Sitting Comments Shoulder ROM WNL PT-OP-L Special Tests Start: 04/09/22 13:22 Freq: Status: Active Protocol: Document 04/09/22 12:00 DCW (Rec: 04/09/22 13:43 DCW [id number]) Special Tests Cervical Spine Special Tests Traction Test Results c/o pain Spurling's Test Test Results Negative Slump Test Results Positive R radicular Foraminal Compression Test Results Negative Alar Ligament Test Results Negative Shoulder Special Tests Passive ER Rotator Cuff Test Results Negative Centeno Harshil Impingement Test Results Negative Grind Labrum Test Results Negative Belly Press Test Results Negative Apprehension Test Test Results Negative PT-OP-Q Treatments Start: 04/09/22 13:22 Freq: Status: Active Protocol: Document 05/12/22 16:00 DCW (Rec: 05/12/22 16:43 DCW [id number]) Manual Therapy Treatment Soft Tissue Mobilization Cervical paraspinals Body Location Paraspinals, suboccipitals, SCM, UT, Levator Mobilization Type Strumming,Sustained Pressure, Trigger Point Release Intensity/Depth Moderate Body Position Supine Manual Traction Cervical Details Cervical Traction PT-OP-T Assessment and Plan Start: 04/09/22 13:22 Freq: Status: Active Protocol: Document 05/12/22 16:00 DCW (Rec: 05/12/22 16:43 DCW [id number]) Physical Therapy Assessment Impairments Impairments Functional Activities, Functional Mobility,Pain,ROM, Soft Tissue Mobility,Tone Goals Two Impairment Pt presents with decreased cervical ROM due to increased muscle tone Well Drill Operator Helper Cable Tool Goal (LTG) Pt to improve cervical rotation to >60? bilaterally in order to improve ability to turn head to look for traffic while driving. LTG Duration 06/10/22 One Impairment Pt does not have an appropriate home exercise program Short Term Goal (STG) Pt to be independent and compliant with an appropriate HEP STG Duration 05/10/22 Assessment Summary Assessment Noticeable increase in overall tone after return from vacation, however responded very well to STM, improved mobility. Focus more next visit on strengthening and HEP stretching to improve compliance. Physical Therapy Plan Frequency and Duration Frequency of Treatment 2x/Week Plan of Care Start Date 04/09/22 Plan of Care End Date 06/10/22 Therapeutic Interventions Therapeutic Interventions Home Exercise Program,Joint Mobilizations,Manual Therapy, Patient/Caregiver Education, Self-Care/Home Management,Soft Tissue Mobilization, Therapeutic Activities, Therapeutic Exercises Modalities Cold Pack/Ice Massage,Electric Stimulation,Hot Packs Next Visit Focus/Plan Next Note Type Treatment Note Next Visit Plan STM, stretching
--- NOTE | 2022-05-19 17:43 | PT.OTN ---
Current Diagnoses Stiffness of other specified joint, not elsewhere classified (05/19/22) Cervicalgia (05/19/22) Other muscle spasm (05/19/22) Lateral epicondylitis, unspecified elbow (05/19/22) Physical Therapy Treatment Note PT-OP-A Visit Information Start: 04/09/22 13:22 Freq: Status: Active Protocol: Document 05/19/22 16:45 DCW (Rec: 05/19/22 17:43 DCW [id number]) Out-Patient Physical Therapy Visit Information Visit Information Visit Type Treatment Note Visit Start Time 16:45 Visit Stop Time 17:30 Total Visit Minutes 45 Visit Number 5 Number of PLANNING LEAD Visits 0 Evaluation Information Evaluation Date 04/09/22 PT-OP-B Current Condition Start: 04/09/22 13:22 Freq: Status: Active Protocol: Document 04/09/22 12:00 DCW (Rec: 04/09/22 13:33 DCW [id number]) Current Condition History of Current Condition Onset Date 6 week history Current Complaints Neck and right shoulder pain, stiffness, and muscle spasm History of Current Condition Pt is a 51 year old male presenting to skilled PT with a referral for lateral epicondylitis and neck pain. Pt reports he underwent a cervical fusion ~six years ago . Pt reports he was told shortly after surgery that his neck didn't actually fuse, and that he'll have problems in the future, maybe tomorrow , maybe in ten years. Reports that he woke up about six weeks ago with severe pain and muscle spasm in his neck and right shoulder. Unsure what actually happened, he was seen by his PCP, how told him he is having muscle spasm, and pt has been taking Flexeril, which helps to an extent. Pt reports that it helps make it tolerable, but the muscle is still really tight. Pt's end goal is to get approval for a CT scan to see if there has been a structural change since his surgery. As far as his epicondylitis referral, pt notes that he has been performing exercises and had an injection for his elbow pain, and is currently pain free with that, and has no onging complaints regarding his elbow. PT-OP-C Subjective Start: 04/09/22 13:22 Freq: Status: Active Protocol: Document 05/19/22 16:45 DCW (Rec: 05/19/22 17:43 DCW [id number]) OP-PT Subjective Patient Comments Patient Comments It's actually not that bad right now. PT-OP-F Manual Assessment Start: 04/09/22 13:22 Freq: Status: Active Protocol: Document 04/09/22 12:00 DCW (Rec: 04/09/22 13:43 [facility] [id number]) Manual Assessments Soft Tissue Assessment Soft Tissue Mobility Assessment Severe tone and tenderness to palpation 3/4: wincing and withdraw along right upper trap, scalenes, levator scap, SCM, and suboccipitals. Joint Mobility Assessment Joint Mobility Assessment Poor cervical mobility secondary to high muscle tone PT-OP-K Range of Motion Start: 04/09/22 13:22 Freq: Status: Active Protocol: Document 04/09/22 12:00 DCW (Rec: 04/09/22 13:43 DCW [id number]) Cervical Spine Range of Motion Cervical Spine Active Degrees Testing Position Sitting Flexion 35 Extension 45 Rotation Left 45 Rotation Right 38 Lateral Flexion Left 18 Lateral Flexion Right 25 ROM Limitations Soft Tissue Tightness,Muscle Tone,Pain Shoulder Goniometric Range of Motion Shoulder Bilateral Active Shoulder ROM WFL Yes Testing Position Sitting Comments Shoulder ROM WNL PT-OP-L Special Tests Start: 04/09/22 13:22 Freq: Status: Active Protocol: Document 04/09/22 12:00 DCW (Rec: 04/09/22 13:43 KSW [id number]) Special Tests Cervical Spine Special Tests Traction Test Results c/o pain Spurling's Test Test Results Negative Slump Test Results Positive R radicular Foraminal Compression Test Results Negative Alar Ligament Test Results Negative Shoulder Special Tests Passive ER Rotator Cuff Test Results Negative Centeno Harshil Impingement Test Results Negative Grind Labrum Test Results Negative Belly Press Test Results Negative Apprehension Test Test Results Negative PT-OP-Q Treatments Start: 04/09/22 13:22 Freq: Status: Active Protocol: Document 05/19/22 16:45 DCW (Rec: 05/19/22 17:43 DCW [id number]) Manual Therapy Treatment Soft Tissue Mobilization Cervical paraspinals Body Location Paraspinals, suboccipitals, SCM, UT, Levator Mobilization Type Strumming,Sustained Pressure, Trigger Point Release Intensity/Depth Moderate Body Position Supine Manual Traction Cervical Details Cervical Traction PT-OP-T Assessment and Plan Start: 04/09/22 13:22 Freq: Status: Active Protocol: Document 05/19/22 16:45 DCW (Rec: 05/19/22 17:43 DCW [id number]) Physical Therapy Assessment Impairments Impairments Functional Activities, Functional Mobility,Pain,ROM, Soft Tissue Mobility,Tone Goals Two Impairment Pt presents with decreased cervical ROM due to increased muscle tone Usp Goal (LTG) Pt to improve cervical rotation to >60? bilaterally in order to improve ability to turn head to look for traffic while driving. LTG Duration 06/10/22 One Impairment Pt does not have an appropriate home exercise program Short Term Goal (STG) Pt to be independent and compliant with an appropriate HEP STG Duration 05/10/22 Assessment Summary Assessment Pt progressing fairly well so far, still increased cervical tone R>L, limits ROM. Unclear at this time, sudden cause of spasm throughout cervical paraspinals, upper trap. Continue to work on manual therapy for tone management, add in more cervical and scapular strengthening exercises as tolerated. Physical Therapy Plan Frequency and Duration Frequency of Treatment 2x/Week Plan of Care Start Date 04/09/22 Plan of Care End Date 06/10/22 Therapeutic Interventions Therapeutic Interventions Home Exercise Program,Joint Mobilizations,Manual Therapy, Patient/Caregiver Education, Self-Care/Home Management,Soft Tissue Mobilization, Therapeutic Activities, Therapeutic Exercises Modalities Cold Pack/Ice Massage,Electric Stimulation,Hot Packs Next Visit Focus/Plan Next Note Type Treatment Note Next Visit Plan STM, stretching
--- NOTE | 2022-05-26 15:59 | PT.OTN ---
Current Diagnoses Stiffness of other specified joint, not elsewhere classified (05/26/22) Cervicalgia (05/26/22) Other muscle spasm (05/26/22) Lateral epicondylitis, unspecified elbow (05/26/22) Physical Therapy Treatment Note PT-OP-A Visit Information Start: 04/09/22 13:22 Freq: Status: Active Protocol: Document 05/26/22 14:39 AW (Rec: 05/26/22 15:59 AW [id number]) Out-Patient Physical Therapy Visit Information Visit Information Visit Type Treatment Note Visit Start Time 15:15 Visit Stop Time 16:00 Total Visit Minutes 45 Visit Number 6 Number of AURIST Visits 0 Evaluation Information Evaluation Date 04/09/22 PT-OP-B Current Condition Start: 04/09/22 13:22 Freq: Status: Active Protocol: Document 04/09/22 12:00 DCW (Rec: 04/09/22 13:33 DCW [id number]) Current Condition History of Current Condition Onset Date 6 week history Current Complaints Neck and right shoulder pain, stiffness, and muscle spasm History of Current Condition Pt is a 51 year old male presenting to skilled PT with a referral for lateral epicondylitis and neck pain. Pt reports he underwent a cervical fusion ~six years ago . Pt reports he was told shortly after surgery that his neck didn't actually fuse, and that he'll have problems in the future, maybe tomorrow , maybe in ten years. Reports that he woke up about six weeks ago with severe pain and muscle spasm in his neck and right shoulder. Unsure what actually happened, he was seen by his PCP, how told him he is having muscle spasm, and pt has been taking Flexeril, which helps to an extent. Pt reports that it helps make it tolerable, but the muscle is still really tight. Pt's end goal is to get approval for a CT scan to see if there has been a structural change since his surgery. As far as his epicondylitis referral, pt notes that he has been performing exercises and had an injection for his elbow pain, and is currently pain free with that, and has no onging complaints regarding his elbow. PT-OP-C Subjective Start: 04/09/22 13:22 Freq: Status: Active Protocol: Document 05/26/22 14:39 AW (Rec: 05/26/22 15:59 AW [id number]) OP-PT Subjective Patient Comments Patient Comments Pt states his neck and shoulder have been pretty stiff again. PT-OP-F Manual Assessment Start: 04/09/22 13:22 Freq: Status: Active Protocol: Document 04/09/22 12:00 DCW (Rec: 04/09/22 13:43 DCW [id number]) Manual Assessments Soft Tissue Assessment Soft Tissue Mobility Assessment Severe tone and tenderness to palpation 3/4: wincing and withdraw along right upper trap, scalenes, levator scap, SCM, and suboccipitals. Joint Mobility Assessment Joint Mobility Assessment Poor cervical mobility secondary to high muscle tone PT-OP-K Range of Motion Start: 04/09/22 13:22 Freq: Status: Active Protocol: Document 04/09/22 12:00 DCW (Rec: 04/09/22 13:43 DCW [id number]) Cervical Spine Range of Motion Cervical Spine Active Degrees Testing Position Sitting Flexion 35 Extension 45 Rotation Left 45 Rotation Right 38 Lateral Flexion Left 18 Lateral Flexion Right 25 ROM Limitations Soft Tissue Tightness,Muscle Tone,Pain Shoulder Goniometric Range of Motion Shoulder Bilateral Active Shoulder ROM WFL Yes Testing Position Sitting Comments Shoulder ROM WNL PT-OP-L Special Tests Start: 04/09/22 13:22 Freq: Status: Active Protocol: Document 04/09/22 12:00 DCW (Rec: 04/09/22 13:43 DCW [id number]) Special Tests Cervical Spine Special Tests Traction Test Results c/o pain Spurling's Test Test Results Negative Slump Test Results Positive R radicular Foraminal Compression Test Results Negative Alar Ligament Test Results Negative Shoulder Special Tests Passive ER Rotator Cuff Test Results Negative Centeno Harshil Impingement Test Results Negative Grind Labrum Test Results Negative Belly Press Test Results Negative Apprehension Test Test Results Negative PT-OP-Q Treatments Start: 04/09/22 13:22 Freq: Status: Active Protocol: Document 05/26/22 14:39 AW (Rec: 05/26/22 15:59 AW [id number]) Therapeutic Exercises Supine Exercises Chin Tuck Supine Exercise Name Chin Tuck/Head Lift Sitting Exercises GH ER Sitting Exercise Name GH ER Side bilateral Resistance TB1 Comments band pull apart; focus on cervical neutral, scap retract cervical AROM Sitting Exercise Name cervical AROM - rotation, side bend Comments cued tall sitting, chin tuck, scap retract Resisted Rotation Sitting Exercise Name Cervical Rotation Side bilateral Resistance Lv 3 Upper Trap Sitting Exercise Name UT stretch Side bilateral Manual Therapy Treatment Soft Tissue Mobilization Cervical paraspinals Body Location Paraspinals, suboccipitals, SCM, UT, Levator Mobilization Type Strumming,Sustained Pressure, Trigger Point Release Intensity/Depth Moderate Body Position Supine Manual Traction Cervical Details Cervical Traction PT-OP-T Assessment and Plan Start: 04/09/22 13:22 Freq: Status: Active Protocol: Document 05/26/22 14:39 AW (Rec: 05/26/22 15:59 AW [id number]) Physical Therapy Assessment Impairments Impairments Functional Activities, Functional Mobility,Pain,ROM, Soft Tissue Mobility,Tone Goals Two Impairment Pt presents with decreased cervical ROM due to increased muscle tone Snf Goal (LTG) Pt to improve cervical rotation to >60? bilaterally in order to improve ability to turn head to look for traffic while driving. LTG Duration 06/10/22 One Impairment Pt does not have an appropriate home exercise program Short Term Goal (STG) Pt to be independent and compliant with an appropriate HEP STG Duration 05/10/22 Assessment Summary Assessment Pt continues to respond well to soft tissue mobilization but reports increase in tone later that day or next day. Unknown cause of spasm which clearly limits ROM. Physical Therapy Plan Frequency and Duration Frequency of Treatment 2x/Week Plan of Care Start Date 04/09/22 Plan of Care End Date 06/10/22 Therapeutic Interventions Therapeutic Interventions Home Exercise Program,Joint Mobilizations,Manual Therapy, Patient/Caregiver Education, Self-Care/Home Management,Soft Tissue Mobilization, Therapeutic Activities, Therapeutic Exercises Modalities Cold Pack/Ice Massage,Electric Stimulation,Hot Packs Next Visit Focus/Plan Next Note Type Treatment Note Next Visit Plan STM, stretching
--- NOTE | 2022-05-31 10:30 | PT.OPDS ---
Current Diagnoses Stiffness of other specified joint, not elsewhere classified (05/26/22) Cervicalgia (05/26/22) Other muscle spasm (05/26/22) Lateral epicondylitis, unspecified elbow (05/26/22) Visit Care Team Role Provider Type John Espitia MD Attending Provider Physician Family Provider Primary Care Provider Referring Provider Specialty: [facility] Practice Address: [facility] [place], [facility] Email: [email or web address] Visit Number Visit Number 6 Discharge Summary PT-OP-B Current Condition Start: 04/09/22 13:22 Freq: Status: Active Protocol: Document 04/09/22 12:00 DCW (Rec: 04/09/22 13:33 DCW [id number]) Current Condition History of Current Condition Onset Date 6 week history Current Complaints Neck and right shoulder pain, stiffness, and muscle spasm History of Current Condition Pt is a 51 year old male presenting to skilled PT with a referral for lateral epicondylitis and neck pain. Pt reports he underwent a cervical fusion ~six years ago . Pt reports he was told shortly after surgery that his neck didn't actually fuse, and that he'll have problems in the future, maybe tomorrow , maybe in ten years. Reports that he woke up about six weeks ago with severe pain and muscle spasm in his neck and right shoulder. Unsure what actually happened, he was seen by his PCP, how told him he is having muscle spasm, and pt has been taking Flexeril, which helps to an extent. Pt reports that it helps make it tolerable, but the muscle is still really tight. Pt's end goal is to get approval for a CT scan to see if there has been a structural change since his surgery. As far as his epicondylitis referral, pt notes that he has been performing exercises and had an injection for his elbow pain, and is currently pain free with that, and has no onging complaints regarding his elbow. PT-OP-C Subjective Start: 04/09/22 13:22 Freq: Status: Active Protocol: Document 05/26/22 14:39 AW (Rec: 05/26/22 15:59 AW [id number]) OP-PT Subjective Patient Comments Patient Comments Pt states his neck and shoulder have been pretty stiff again. PT-OP-F Manual Assessment Start: 04/09/22 13:22 Freq: Status: Active Protocol: Document 04/09/22 12:00 DCW (Rec: 04/09/22 13:43 DCW [id number]) Manual Assessments Soft Tissue Assessment Soft Tissue Mobility Assessment Severe tone and tenderness to palpation 3/4: wincing and withdraw along right upper trap, scalenes, levator scap, SCM, and suboccipitals. Joint Mobility Assessment Joint Mobility Assessment Poor cervical mobility secondary to high muscle tone PT-OP-K Range of Motion Start: 04/09/22 13:22 Freq: Status: Active Protocol: Document 04/09/22 12:00 DCW (Rec: 04/09/22 13:43 DCW [id number]) Cervical Spine Range of Motion Cervical Spine Active Degrees Testing Position Sitting Flexion 35 Extension 45 Rotation Left 45 Rotation Right 38 Lateral Flexion Left 18 Lateral Flexion Right 25 ROM Limitations Soft Tissue Tightness,Muscle Tone,Pain Shoulder Goniometric Range of Motion Shoulder Bilateral Active Shoulder ROM WFL Yes Testing Position Sitting Comments Shoulder ROM WNL PT-OP-L Special Tests Start: 04/09/22 13:22 Freq: Status: Active Protocol: Document 04/09/22 12:00 DCW (Rec: 04/09/22 13:43 DCW [id number]) Special Tests Cervical Spine Special Tests Traction Test Results c/o pain Spurling's Test Test Results Negative Slump Test Results Positive R radicular Foraminal Compression Test Results Negative Alar Ligament Test Results Negative Shoulder Special Tests Passive ER Rotator Cuff Test Results Negative Centeno Harshil Impingement Test Results Negative Grind Labrum Test Results Negative Belly Press Test Results Negative Apprehension Test Test Results Negative PT-OP-T Assessment and Plan Start: 04/09/22 13:22 Freq: Status: Active Protocol: Document 05/31/22 10:28 DCW (Rec: 05/31/22 10:30 DCW [id number]) Physical Therapy Assessment Assessment Summary Assessment Pt called and canceled all remaining appointments and requested discharge, no reason given. Physical Therapy Plan Discharge Physical Therapy Discharge Reasons Patient Request
== END 2022-06-02 12:24 | disposition home or self-care (01) ==
LOC: PHYS 15:15
PROVIDERS: Family Provider Family Medicine; PCP Family Medicine; Referring Provider Family Medicine; Visit Provider Family Medicine
DX: M62.838 Other muscle spasm (principal); M25.69 Stiffness of other specified joint, not elsewhere classified; M77.10 Lateral epicondylitis, unspecified elbow; M54.2 Cervicalgia
CPT/HCPCS: 97110; 97140; 97161

== ENCOUNTER → 2022-06-08 07:19 | Outpatient (CLI) | payer OTHER, SELFPAY ==
[2018-09-28 12:31] VITALS: BMI 25.2
--- NOTE | 2022-06-08 07:20 | DI.MRI.S_ITS ---
PROCEDURE: MR CERVICAL SPINE WO CON INDICATIONS: Other muscle spasm TECHNIQUE: Noncontrast sagittal T1 spin echo and T2 fast spin echo, sagittal STIR, foraminal oblique sagittal T2 fast spin echo, and axial gradient echo or T2 fast spin echo through the cervical spine. COMPARISON: None. FINDINGS: Image quality: Excellent. Alignment and Curvature: There is normal bony alignment. Bone Marrow: C6-7 anterior cervical discectomy and fusion with anterior plate and screw hardware noted. Spinal Cord: Visualized spinal cord has normal size and signal. No cerebellar tonsillar herniation. Paraspinous Soft Tissues: No paravertebral masses. Prevertebral soft tissues are normal in thickness. C2-C3: Normal appearance. C3-C4: Disc height is preserved. Hypertrophic right facet joint results in moderate right foraminal stenosis. No central or left foraminal stenosis C4-C5: Normal appearance. C5-C6: Disc space narrowing small posterior disc osteophyte complex results in [id number] central stenosis. C6-C7: Discectomy and fusion. No central or foraminal stenosis. C7-T1: Normal appearance. IMPRESSION: 1. 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 2. C6-7 instrumented discectomy and fusion Approved by: Alber Davis M.D. on 06/08/2022 at 10:25
== END ==
PROVIDERS: Family Provider Family Medicine; PCP Family Medicine; Referring Provider Family Medicine; Visit Provider Family Medicine
DX: M62.838 Other muscle spasm (principal); M47.812 Spondylosis without myelopathy or radiculopathy, cervical region; M48.02 Spinal stenosis, cervical region; Z98.1 Arthrodesis status
CPT/HCPCS: 72141

== ENCOUNTER → 2023-03-03 15:37 | Outpatient (CLI) | payer OTHER, SELFPAY ==
[2018-09-28 12:31] VITALS: BMI 25.2
== END ==
PROVIDERS: Family Provider Family Medicine; PCP Family Medicine; Referring Provider Family Medicine; Visit Provider Family Medicine
DX: Z23 Encounter for immunization (principal)
CPT/HCPCS: 90471; 90686

== ENCOUNTER → 2023-05-23 08:18 | Outpatient (CLI) | payer OTHER, SELFPAY ==
[2018-09-28 12:31] VITALS: BMI 25.2
[2023-05-23 09:13] LABS: Add Manual Diff / Slide Review NO; Basophils Absolute Auto 0 /uL (0-100); Basophils Percent Auto 0.6 % (0-2); Eosinophils Absolute Auto 200 /uL (0-450); Eosinophils Percent Auto 3.1 % (2-4); Hematocrit 41.1 % (41-53); Lymphocytes Absolute Auto 800 /uL (1100-4500); Lymphocytes Percent Auto 16.6 % (25-40); Mean Corpuscular HGB Conc 34.1 % (30-36); Mean Corpuscular Hemoglobin 30.5 PG (26-34); Mean Corpuscular Volume 89.7 fL (80-100); Monocytes Absolute Auto 500 /uL (0-900); Monocytes Percent Auto 9.1 % (3-14); Neutrophils Absolute Auto 3500 /uL (1500-7000); Neutrophils Percent Auto 70.6 % (50-75); Platelet Count 238 X10^3/uL (150-400); Red Blood Cell Count 4.59 X10^6/uL (4.5-5.9); Red Cell Distribution Width 13.9 % (11.6-14.8)
[2023-05-23 09:28] LABS: Alanine Aminotransferase 31 IU/L (<50); Albumin 4.9 g/dL (3.5-5.0); Albumin Globulin Ratio 1.7 (1.0-2.8); Alkaline Phosphatase 49 U/L (38-126); Aspartate Aminotransferase 37 IU/L (17-59); Bilirubin Total 0.6 mg/dL (0.2-1.3); Blood Urea Nitrogen 20 mg/dL (9-20); Calcium 10.2 mg/dL (8.4-10.2); Carbon Dioxide 27 mmol/L (22-32); Chloride 99 mmol/L (98-107); Cholesterol 196 mg/dL (140-199); Estimated Glomerular Filt Rate > 60 mL/min (>60); Globulin 2.9 g/dL (1.7-4.1); Glucose 94 mg/dL (70-100); HDL Cholesterol 60 mg/dL (40-60); HEMOLYSIS < 15 (0-50); LDL Cholesterol Calculated 112 mg/dL (<100); Potassium 4.2 mmol/L (3.4-5.1); Sodium 134 mmol/L (137-145); Total Protein 7.8 g/dL (6.3-8.2); Triglycerides 121 mg/dL (35-150)
[2023-05-23 09:57] LABS: Prostate Specific Antigen 0.923 ng/mL (0.10-4.00); TSH w/ Reflex to FT4 0.81 uIU/mL (0.47-4.68)
== END ==
LOC: LAB 08:20
PROVIDERS: Family Provider Family Medicine; PCP Family Medicine; Referring Provider Family Medicine; Visit Provider Family Medicine
DX: I10 Essential (primary) hypertension (principal); E78.5 Hyperlipidemia, unspecified; E83.52 Hypercalcemia; E34.9 Endocrine disorder, unspecified
CPT/HCPCS: 36415; 80053; 80061; 84153; 84443; 85025

== ENCOUNTER → 2023-05-25 07:50 | Outpatient (CLI) | payer OTHER, SELFPAY ==
[2018-09-28 12:31] VITALS: BMI 25.2
--- NOTE | 2023-05-25 07:51 | DI.RAD.S_ITS ---
PROCEDURE: XR CERVICAL SPINE 4V OR 5V INDICATIONS: Neck pain TECHNIQUE: 5 views of the cervical spine acquired. COMPARISON: [facility], CR, XR CERVICAL SPINE 4V OR 5V, 04/16/2022, 12:15. FINDINGS: Bones: No fractures or dislocations to the C7 level. ACDF of C6-7, without hardware complication. Moderate disc height loss at C5-6. Moderate left-sided neural foraminal narrowing at C3-4. Diffuse facet arthrosis. Soft tissues: No prevertebral soft tissue swelling. IMPRESSION: ACDF of C6-7, without hardware complication. Moderate left-sided neural foraminal narrowing at C3-4. Diffuse facet arthrosis and moderate disc disease at C5-6. Dictated by: Luigi Martínez M.D. on 05/25/2023 at 11:11 Approved by: Luigi Martínez M.D. on 05/25/2023 at 11:16
== END ==
LOC: RAD 07:51
PROVIDERS: Family Provider Family Medicine; PCP Family Medicine; Referring Provider Anesthesiology; Visit Provider Anesthesiology
DX: M47.812 Spondylosis without myelopathy or radiculopathy, cervical region (principal); M48.02 Spinal stenosis, cervical region; M50.922 Unspecified cervical disc disorder at C5-C6 level; Z98.1 Arthrodesis status
CPT/HCPCS: 72050

== ENCOUNTER 2023-06-22 13:27 | Outpatient (CLI) | payer OTHER, SELFPAY ==
[2018-09-28 12:31] VITALS: BMI 25.2
[2023-06-22] VITALS (15 sets, daily range): BP systolic 75–132; BP diastolic 43–89; PULSE 70–85; RESP 12–22; TEMP 36.7; O2SAT 92–98
--- NOTE | 2023-06-22 14:00 | DI.RAD.S_ITS ---
PROCEDURE: PAIN C/T FACET INJ/BLK 1ST L INDICATIONS: SPINAL STENOSIS COMPARISON: None. FINDINGS: Fluoroscopic spot filming was performed to verify placement of spinal needles at the right C3, C4 on C5 level(s), as labeled on the films. Appropriate location(s) of the needle tip(s) was confirmed by injection of iodinated contrast. IMPRESSION: Intra procedural examination demonstrating appropriate positions of the needles. Dictated by: Ulises Dumas M.D. on 06/22/2023 at 14:54 Approved by: Ulises Dumas M.D. on 06/22/2023 at 14:54
[2023-06-22] MEDS: MIDAZOLAM 2 MG/2 ML VIAL IV (14:08)
[2023-06-22] MEDS: BUPIVACAINE 0.5% (PF) 10 ML VIAL 5 ML INJ (14:14)
[2023-06-22] MEDS: iopamidoL 15 ML VIAL 3 ML INJ (14:14)
[2023-06-22] MEDS: ONDANSETRON 4 MG/2 ML INJ IV (14:28)
--- NOTE | 2023-06-22 14:59 | P.PCN_ITS ---
Date/Time/Diagnoses Date of procedure: 06/22/23 Time of procedure: 14:00 Procedure Notes Physician: George Chan Total Fluoroscopy time (seconds): 19 Total sedation minutes: 18 Procedure in detail & Post-procedure care: Right C3, 4, 5 Cervical Medial Branch Blocks Indications: Jhoan is presenting for treatment of cervical spondylosis with cervical pain. Preoperative diagnosis: Cervical spondylosis Postoperative diagnosis: Same Pre-procedure History: Patient demonstrates today moderate to severe non- radicular neck pain without neurologic deficit aggravated by hyperextension yes Neck pain greater than arm pain? F yes Patient today has tenderness over the suspected joint(s) yes History of post-traumatic injury? no Hypertrophic arthropathy F yes Neck pain associated with suspected motion segment instability, hypermobility or pseudoarthrosis no Pre-testing pain score (VAS): 8/10 Focused Examination: Ax3 Mood and affect are normal Vital Signs: VSS ASA: 2 Consent: Following review of allergies and potential side effects/complications, including, but not necessarily limited to, infection, allergic reaction, local tissue breakdown, stroke, temporary or permanent nerve injury, paralysis, and possible , the patient indicated that they understood and agreed to proceed.? An informed consent document was signed by the patient, witnessed by a nurse and placed in the patient's chart.? Additionally, other treatment options including medications and physical therapy were reviewed with the patient. All questions were answered. Site was then marked. Anesthesia: After review of previous anesthetic history and IV conscious sedation, the patient was deemed safe to proceed with today's procedure with IV conscious sedation. IV sedation was accomplished with midazolam 2 mg administered by the RN after order by Dr. Chan. Sedation was titrated to patient comfort during the course of the procedure. Patient remained responsive to all verbal commands. Position: Prone Monitoring: NIBP, Pulse oximetry, 3 lead EKG Needle used: 22G 3.5 inch spinal needle Contrast: Isovue 300M Injectate: 0.5% bupivacaine 0.5 mL per site Procedure: The patient was brought into the procedure room and positioned into the prone position. Skin was prepped with a Chloraprep solution, allowed to air dry, and then draped in sterile fashion.? The right C3-4 and C4-5 facet joints were visually identified with fluoroscopy. Lidocaine 1% was used to anesthetize the skin over each target destination with a 25ga needle. A 22 ga, 3.5 inch spinal needle was advanced to the location of the medial branch at the waist of the articular pillar using intermittent fluoroscopy in the AP view. Isovue 300M contrast 0.2ml was injected at each level outlining the borders for each level in the AP/lateral views and confirmed in the foraminal view. There was no evidence of vascular or intrathecal uptake. The above injectate was slowly injected at each target destination. At the end of the procedure the needles were withdrawn and Band-Aids were applied for a dressing. Post Procedure: Patient was taken to the recovery and monitored. The patient was provided a Pain Log to continue to record the patient's response to the target- specific procedure prior to the patient's follow-up visit with the referring physician. Patient was stable upon discharge. Detailed post procedure instructions were provided. Patient was asked to call in the event of worsening pain, fever, weakness, numbness or bladder or bowel incontinence. Based on the medial branches blocked today, if the patient meets insurance criteria for radiofrequency, the treatment should result in the denervation of the right C3-4 and C4-5 facet joint nerves. We would expect to denervate a total of 2 facets during the radiofrequency ablation. Complications: Vasovagal episode at the end of the injection. Patient was hypotensive and diaphoretic. Heart rate was normal sinus rhythm in the 70s. He did not lose consciousness however he did complain of nausea. He was rolled onto a hospital stretcher and placed in Trendelenburg position. A cold towel was placed over his neck. He was given a bolus of 500 cc of normal saline and 4 mg of Zofran. His blood pressure quickly returned to baseline and he reported feeling normal. He was taken to the recovery room in stable condition. Checking on patient approximately 10 minutes after this episode he was sitting up in bed and answered questions appropriately. He denied any chest pain/shortness of breath. Vital signs were stable and he was otherwise doing we ll.
--- NOTE | 2023-06-22 15:01 | PC.NURSE ---
1423- Patient started feeling nauseated, see vitals is pale and diaphoretic. Patient is alert and talking. 1428- patient is alert and answering questions appropriately. Patient rolled onto stretcher, supine and placed in trendelenburg. 4mg IV Zofran given per verbal order from Dr Chan, IV fluids bolus hanging. 1432- Patient reports that he is starting to feel better and the nausea is subsiding and not as lightheaded. 1434- Patient is feeling better making needs known, Blood pressure increasing. Denies chest pain, SOB and headache. Patient was transferred to post procedure room via stretcher.
--- NOTE | 2023-06-22 15:11 | PC.NURSE ---
Recovery Patient doing well in recovery. HR remaining stable in NSR. Patient tolerating fluids and snacks without nausea. Patient VS WNL and patient states that he is feeling better. Patient discharged home with . Patient's aware of patient's drop in blood pressure during the procedure. Discharge instructions given to patient and patient's . Patient taken to POV via wheelchair. Patient stood and ambulated without incidence. Patient verbalized that he was ready to go home.
== END 2023-06-22 15:35 | disposition home or self-care (01) ==
PROVIDERS: Family Provider Family Medicine; PCP Family Medicine; Referring Provider Anesthesiology; Visit Provider Anesthesiology
DX: M47.812 Spondylosis without myelopathy or radiculopathy, cervical region (principal)
CPT/HCPCS: 64490; 64491; 99152; J2250; J2405

== ENCOUNTER 2023-08-10 15:27 | Outpatient (CLI) | payer OTHER, SELFPAY ==
[2018-09-28 12:31] VITALS: BMI 25.2
[2023-08-10] VITALS (9 sets, daily range): BP systolic 117–137; BP diastolic 76–89; PULSE 70–86; RESP 17–20; TEMP 36.7; O2SAT 96–100
[2023-08-10] MEDS: MIDAZOLAM 2 MG/2 ML VIAL IV (15:58)
--- NOTE | 2023-08-10 16:00 | DI.RAD.S_ITS ---
PROCEDURE: PAIN C/T INTERLAMINAR INJECT INDICATIONS: Radiculopathy COMPARISON: [facility], CR, XR CERVICAL SPINE 4V OR 5V, 05/25/2023, 7:55. [facility], MR, MR CERVICAL SPINE WO CON, 06/08/2022, 7:33. FINDINGS: Fluoroscopic spot filming was performed to verify placement of spinal needles at the T1-T2 level(s), as labeled on the films. Appropriate location(s) of the needle tip(s) was confirmed by injection of iodinated contrast. IMPRESSION: Fluoroscopy for pain management. Dictated by: Jaime Murray M.D. on 08/10/2023 at 17:05 Approved by: Jaime Murray M.D. on 08/10/2023 at 17:05
[2023-08-10] MEDS: iopamidoL 15 ML VIAL 3 ML INJ (16:03)
[2023-08-10] MEDS: DEXAMETHASONE 10 MG/ML VIAL INJ (16:03)
--- NOTE | 2023-08-10 16:16 | P.PCN_ITS ---
Date/Time/Diagnoses Date of procedure: 08/10/23 Time of procedure: 16:00 Procedure Notes Physician: George Chan Total Fluoroscopy time (seconds): 19 Total sedation minutes: 12 Procedure in detail & Post-procedure care: T1-2 Interlaminar Epidural Steroid Injection Indications: Jhoan is presenting for treatment of cervical radiculopathy with neck and arm pain. Preoperative diagnosis: Cervical radiculopathy Postoperative diagnosis: Same Focused Examination: Ax3 Mood and affect are normal Vital Signs: VSS ASA: 2 History of vasovagal reaction with prior injection. IV started and 500 cc normal saline bolus given prior to this injection. Consent: Risks, benefits and alternatives discussed at a prior clinic visit and the patient voiced understanding at that time. Prior to today's injection, we again went over the risks, benefits and alternatives. Following review of allergies and potential side effects/complications, including, but not necessarily limited to, infection, allergic reaction, local tissue breakdown, stroke, temporary or permanent nerve injury, paralysis, and possible , the patient indicated that they understood and agreed to proceed.? A consent document was signed by the patient, witnessed by a nurse and placed in the patient's chart.? Additionally, other treatment options including medications and physical therapy were reviewed with the patient. All questions were answered. Site was then marked. Anesthesia: After review of previous anesthetic history and IV conscious sedation, the patient was deemed safe to proceed with today's procedure with IV conscious sedation. IV sedation was accomplished with midazolam 2 mg administered by the RN after physician order. Sedation was titrated to patient comfort during the course of the procedure. Patient remained responsive to all verbal commands. Position: Prone Monitoring: NIBP, Pulse oximetry, 3 lead EKG Needle used: 18 G 3.5? Tuohy Contrast: Isovue 300-M 2 mL Injectate: Dexamethasone 10 mg followed by Normal Saline 2 mL Technique: The skin was prepped with chloraprep and then draped in a sterile fashion. Time out was performed as per protocol. Oxygen applied via NC. Skin and subcutaneous structures of the needle entry site was then infiltrated with 3 mL of lidocaine 1%. Under AP, lateral and contralateral oblique fluoroscopic control, the Tuohy needle was guided into the T1-2 epidural space. The space was accessed with loss of resistance technique. Isovue 300-M was then injected and the spread was consistent with the epidural space. There was no evidence for intravascular or intrathecal uptake. After negative aspiration, the above- mentioned injectate was then slowly administered and the needle withdrawn. The patient expressed no unusual discomfort or paresthesias during the injection. Band-Aids applied to injection sites. EBL: less than 1 ml Complications: None Post Procedure: Patient was taken to the recovery and monitored. The patient was provided a Pain Log to continue to record the patient's response to the target- specific procedure prior to the patient's follow-up visit with the referring physician. Patient was stable upon discharge. Detailed post procedure instructions were provided. Patient was asked to call in the event of worsening pain, fever, weakness, numbness or bladder or bowel incontinence.
[2023-08-10] MEDS: SODIUM CHLORIDE 0.9% 500 ML 1000 ML IV (16:31)
== END 2023-08-10 16:33 | disposition home or self-care (01) ==
PROVIDERS: Family Provider Family Medicine; PCP Family Medicine; Referring Provider Anesthesiology; Visit Provider Anesthesiology
DX: M54.12 Radiculopathy, cervical region (principal)
CPT/HCPCS: 62321; 99152; J1100; J2250

== ENCOUNTER → 2024-03-02 16:23 | Outpatient (CLI) | payer OTHER, SELFPAY ==
[2018-09-28 12:31] VITALS: BMI 25.2
== END ==
PROVIDERS: Family Provider Family Medicine; PCP Family Medicine; Referring Provider Internal Medicine; Visit Provider Internal Medicine
DX: Z23 Encounter for immunization (principal)
CPT/HCPCS: 90471; 90656

== ENCOUNTER → 2024-07-12 07:05 | Outpatient (ROUT) | payer OTHER, SELFPAY ==
[2018-09-28 12:31] VITALS: BMI 25.2
[2024-07-12 07:15] LABS: Hematocrit 43.9 % (41-53); Hemoglobin 15.1 g/dL (13.5-17.5); Mean Corpuscular HGB Conc 34.3 % (30-36); Mean Corpuscular Volume 87.5 fL (80-100); Platelet Count 239 X10^3/uL (150-400); Red Blood Cell Count 5.02 X10^6/uL (4.5-5.9); Red Cell Distribution Width 13.3 % (11.6-14.8); White Blood Cell Count 6.1 X10^3/uL (4.5-11.0)
[2024-07-12 07:29] LABS: Alanine Aminotransferase 35 IU/L (<50); Albumin 5.2 g/dL (3.5-5.0); Albumin Globulin Ratio 1.6 (1.0-2.8); Alkaline Phosphatase 60 U/L (38-126); Aspartate Aminotransferase 40 IU/L (17-59); BUN Creatinine Ratio 24.4 (6-22); Bilirubin Total 0.8 mg/dL (0.2-1.3); Blood Urea Nitrogen 20 mg/dL (9-20); Calcium 9.7 mg/dL (8.4-10.2); Carbon Dioxide 29 mmol/L (22-32); Chloride 101 mmol/L (98-107); Cholesterol 246 mg/dL (140-199); Estimated Glomerular Filt Rate > 60 mL/min (>60); Globulin 3.2 g/dL (1.7-4.1); Glucose 102 mg/dL (70-100); HDL Cholesterol 69 mg/dL (40-60); HEMOLYSIS < 15 (0-50); LDL Cholesterol Calculated 147 mg/dL (<100); Potassium 4.3 mmol/L (3.4-5.1); Sodium 140 mmol/L (137-145); Total Protein 8.4 g/dL (6.3-8.2); Triglycerides 151 mg/dL (35-150)
[2024-07-12 07:59] LABS: Prostate Specific Antigen 0.822 ng/mL (0.10-4.00)
[2024-07-12 08:04] LABS: TSH w/ Reflex to FT4 0.77 uIU/mL (0.47-4.68)
== END ==
PROVIDERS: Family Provider Family Medicine; PCP Family Medicine; Visit Provider Family Medicine
DX: Z00.00 Encounter for general adult medical examination without abnormal findings (principal); Z12.5 Encounter for screening for malignant neoplasm of prostate
CPT/HCPCS: 36415; 80053; 80061; 84153; 84443; 85027

== ENCOUNTER → 2025-01-24 08:12 | Outpatient (CLI) | payer OTHER, SELFPAY ==
[2018-09-28 12:31] VITALS: BMI 25.2
--- NOTE | 2025-01-24 08:16 | DI.RAD.S_ITS ---
PROCEDURE: XR CERVICAL SPINE 2V OR 3V INDICATIONS: Spinal stenosis cervical region TECHNIQUE: Three views of the cervical spine were acquired. COMPARISON: [facility], CR, XR CERVICAL SPINE 4V OR 5V, 05/25/2023, 7:55. FINDINGS: Cervical spine curvature and alignment: Straightening lordotic curve suggesting muscle spasm Bones: There are no osseous abnormalities. Disc spaces: Solid anterior C6-7 fusion provided by interbody graft , anterior plate and screws again seen. Moderate C5-6 and mild C7-T1 degenerative disc disease. Mild C2-3 through C7-T1 degenerative facet disease . Soft tissues: No soft tissue swelling, calcification or mass. IMPRESSION: Anterior C6-7 fusion. Solid and anatomically aligned. Degeneration-stable Dictated by: Christiano Rendon M.D. on 01/24/2025 at 9:04 Approved by: Christiano Rendon M.D. on 01/24/2025 at 9:05
== END ==
LOC: RAD 08:14
PROVIDERS: Family Provider Family Medicine; PCP Family Medicine; Referring Provider Family Medicine; Visit Provider Family Medicine
DX: M48.02 Spinal stenosis, cervical region (principal); M47.812 Spondylosis without myelopathy or radiculopathy, cervical region; M50.322 Other cervical disc degeneration at C5-C6 level; Z98.1 Arthrodesis status
CPT/HCPCS: 72040

== ENCOUNTER 2025-04-24 07:08 | Outpatient (CLI) | payer OTHER, SELFPAY ==
[2018-09-28 12:31] VITALS: BMI 25.2
[2025-04-24 07:50] VITALS: BP 136/91; PULSE 85; RESP 17; TEMP 36.4; O2SAT 97
[2025-04-24 08:28] VITALS: BP 150/94; PULSE 73; RESP 16; O2SAT 97
[2025-04-24 08:35] VITALS: BP 144/93; PULSE 78; RESP 18; O2SAT 98
[2025-04-24] MEDS: LIDOCAINE 1% (PF) 5 ML 10 ML INJ (08:38)
[2025-04-24 08:45] VITALS: BP 146/93; PULSE 76; RESP 16; O2SAT 96
--- NOTE | 2025-04-24 12:54 | PM.PROC.IR.1 ---
Date/Time/Diagnoses Date of procedure: 04/24/25 Time of procedure: 08:00 Pre-procedure diagnosis: Cervicothoracic radiculopathy Post-procedure diagnosis: same Procedure Notes Procedure: Interlaminar epidural steroid injection T1-2 Indications: Cervicothoracic radiculopathy Physician: Robert Stephenson Total sedation minutes: 0 Complications: none Procedure in detail & Post-procedure care: Patient is here for the planned procedure today as noted. No significant change since the last office visit. For additional clinical scenario please see those office notes. Focused exam: Vital signs reviewed as charted on intake. Gen: Well developed. No acute distress. CV: RRR, no M/R/G Chest: Non-labored breathing, CTAB. Psych: Alert and well-oriented. Mood/Affect: normal. Patient suitable for the planned procedure today: Yes === The following procedure was performed in the office today: Thoracic Epidural Steroid Injection with fluoroscopic guidance - Interlaminar approach (33697) Levels Treated: T1-2 Approach: interlaminar Soft tissue: [1% lidocaine 2 mL] Test dose: 1% lidocaine 1 mL Injectate: [1.5 mL dexamethasone (10mg/mL), 1 mL lidocaine 1%, 1.5 mL normal saline] Fluoroscopy Agent: Isovue 300-M 1.5 mL Notes: History ACDF C6-7. Left paramedian approach. 3.5 in 20 gauge Touhy needle utilized an adequate. Preprocedure pain 7.5/10, postprocedure pain 7/10. Procedure: After discussing the risks, benefits, and alternatives to the procedure, the patient expressed understanding and wished to proceed. The risks include but are not limited to infection, allergic reaction, nerve damage, stroke, paralysis, epidural hematoma, syncope, headache, respiratory or cardiac arrest, spinal cord injury, and scar formation. Informed consent was obtained and all patient questions were answered. The patient was brought to the procedure suite and placed in the prone position. A pre-procedural pause was conducted to verify: correct patient identity, procedure to be performed and as applicable, correct side and site, correct patient position, and any special requirements. Using a paramedian approach from the side noted above, the region overlying the target was localized under fluoroscopic visualization and the soft tissues overlying this structure were infiltrated with the anesthetic listed above. With fluoroscopic guidance, a #20 gauge Tuohy needle (unless otherwise noted) was inserted into the epidural space using a paramedian approach. The epidural space was localized utilizing intermittent multiplanar fluoroscopic guidance and loss of resistance technique. After negative aspiration, the contrast noted above was injected into the epidural space and the flow of contrast was observed, confirming epidural spread without evidence of intravascular or intrathecal spread. Multi-planar radiographs were obtained for documentation purposes. A test dose of lidocaine was given and the patient was observed for 30-60 seconds. There were no adverse reactions noted. Subsequently, the injectate as noted above was administered into the level noted above. The patient tolerated the procedure well and was discharged after an appropriate period of observation. If there are any complications, the patient was instructed to call us. The patient is to follow-up with the requesting provider in 2-3 weeks/as planned. This note was compiled using voice recognition software and therefore may contain typos. Please contact the author with any questions or concerns.
== END 2025-04-24 08:50 | disposition home or self-care (01) ==
LOC: RAD 07:08
PROVIDERS: Family Provider Family Medicine; PCP Family Medicine; Referring Provider Family Medicine; Visit Provider Physical Medicine & Rehabilitation
DX: M54.13 Radiculopathy, cervicothoracic region (principal); M54.2 Cervicalgia; Z98.1 Arthrodesis status
CPT/HCPCS: 62321; J1100